=== PATIENT | female | born 1975 | race Caucasian/White ===

== ENCOUNTER 2020-05-17 01:04 | Outpatient (CLI) | payer BC, SELFPAY ==
[2020-05-17 18:38] LABS: SARS-CoV-2 RNA PCR Negative
== END 2020-05-17 01:05 | disposition home or self-care (01) ==
LOC: ANHCOVIDDT 01:06
PROVIDERS: PCP Physician Assistant; Visit Provider Internal Medicine Gastroenterology
DX: Z01.812 Encounter for preprocedural laboratory examination (principal); Z11.59 Encounter for screening for other viral diseases
CPT/HCPCS: 87635; C9803; U0003

== ENCOUNTER 2020-05-19 01:32 | Day surgery (SDC) | payer BC, SELFPAY ==
[2020-05-12 10:57] VITALS: BMI 27.5
--- NOTE | 2020-05-18 16:56 | WPDANESEPP ---
Anes - Eval Pre Procedure Procedure: Operation Date: 05/19/20 07:30 Proposed Procedures p Colonoscopy - Fly Aldridge MD Date/Time: 05/18/20 16:56 Pre Op Diagnosis: Change in Bowel Habits Patient Data Age: 45 Gender: F Height: 5 ft 4 in Weight: 72.7 kg Allergies Allergy/AdvReac Type Severity Reaction Status Date / Time No Known Allergies Allergy Verified 05/12/20 10:54 Home Medications Medication Instructions Recorded Confirmed Type alprazolam 0.5 mg PO TID PRN 05/12/20 05/12/20 History doxycycline hyclate 50 mg PO PRN PRN 05/12/20 05/12/20 History fluconazole 150 mg PO DAILY PRN 05/12/20 05/12/20 History hydrochlorothiazide 12.5 mg PO DAILY 05/12/20 05/12/20 History levothyroxine [Synthroid] 88 mcg PO DAILY 05/12/20 05/12/20 History milnacipran [Savella] 50 mg PO HS 05/12/20 05/12/20 History milnacipran [Savella] 100 mg PO DAILY 05/12/20 05/12/20 History tizanidine 8 mg PO HS 05/12/20 05/12/20 History Patient hx anesthesia problems: none Family hx anesthesia problems: none PMFSH Past Medical History Medical History Anxiety and depression Diarrhea Fibromyalgia Hypothyroidism Kidney stones Migraines Family History Family History Sibling Family history of elevated blood lipids Other Diabetes mellitus Social History Social History Smoking status: Never smoker Alcohol intake: current Exam Day of Procedure 05/18/20 16:56 Patient weight: overweight Neurological: alert and oriented
--- NOTE | 2020-05-18 17:37 | WPDANESEPP ---
Anes - Eval Pre Procedure Procedure: Operation Date: 05/19/20 07:30 Proposed Procedures p Colonoscopy - Fly Aldridge MD Date/Time: 05/18/20 17:37 Pre Op Diagnosis: Change in Bowel Habits Patient Data Age: 45 Gender: F Height: 5 ft 4 in Weight: 72.7 kg Allergies Allergy/AdvReac Type Severity Reaction Status Date / Time No Known Allergies Allergy Verified 05/12/20 10:54 Home Medications Medication Instructions Recorded Confirmed Type alprazolam 0.5 mg PO TID PRN 05/12/20 05/12/20 History doxycycline hyclate 50 mg PO PRN PRN 05/12/20 05/12/20 History fluconazole 150 mg PO DAILY PRN 05/12/20 05/12/20 History hydrochlorothiazide 12.5 mg PO DAILY 05/12/20 05/12/20 History levothyroxine [Synthroid] 88 mcg PO DAILY 05/12/20 05/12/20 History milnacipran [Savella] 50 mg PO HS 05/12/20 05/12/20 History milnacipran [Savella] 100 mg PO DAILY 05/12/20 05/12/20 History tizanidine 8 mg PO HS 05/12/20 05/12/20 History Patient hx anesthesia problems: none Family hx anesthesia problems: none PMFSH Past Medical History Medical History (Updated 05/18/20 @ 17:39 by Iker Mojica CRNA) Anxiety and depression Diarrhea Fibromyalgia Hypothyroidism Kidney stones Migraines Family History Family History Sibling Family history of elevated blood lipids Other Diabetes mellitus Social History Social History Smoking status: Never smoker Alcohol intake: current Exam Day of Procedure 05/18/20 17:37 Patient weight: normal Neurological: alert and oriented
[2020-05-19 06:27] VITALS: BP 123/90; PULSE 94; RESP 18; TEMP 36.4; O2SAT 99; BMI 27.6
[2020-05-19] MEDS: LACTATED RINGERS 1,000 ML 150 ML IV CONT (06:39)
--- NOTE | 2020-05-19 07:14 | WPDANESEFPP ---
Anes - Eval Final PreProcedure Day of Procedure 05/19/20 07:14 Informed Consent: The patient's anesthetic plan and its attendant risks and benefits were discussed with the patient/family/POA. Questions were solicited and answers provided to the satisfaction of the patient/family/POA.
--- NOTE | 2020-05-19 07:19 | P.PNAN_ITS ---
Anes - Initial Pre Proc Eval Procedure: Operation Date: 05/19/20 07:30 Proposed Procedures p Colonoscopy - Fly Aldridge MD Date/Time: 05/19/20 07:19 Surgeon: Fly Aldridge MD Pre Op Diagnosis: Change in Bowel Habits Patient Data Age: 45 Gender: F Height: 5 ft 4 in Weight: 73 kg Last Vital Signs Temp 97.5 F L 05/19/20 06:27 Pulse 94 05/19/20 06:27 Resp 18 05/19/20 06:27 BP 123/90 05/19/20 06:27 Pulse Ox 99 05/19/20 06:27 Allergies Allergy/AdvReac Type Severity Reaction Status Date / Time No Known Allergies Allergy Verified 05/19/20 06:25 Home Medications Medication Instructions Recorded Confirmed Type alprazolam 0.5 mg PO TID PRN 05/12/20 05/12/20 History doxycycline hyclate 50 mg PO PRN PRN 05/12/20 05/12/20 History fluconazole 150 mg PO DAILY PRN 05/12/20 05/12/20 History hydrochlorothiazide 12.5 mg PO DAILY 05/12/20 05/12/20 History levothyroxine [Synthroid] 88 mcg PO DAILY 05/12/20 05/12/20 History milnacipran [Savella] 50 mg PO HS 05/12/20 05/12/20 History milnacipran [Savella] 100 mg PO DAILY 05/12/20 05/12/20 History tizanidine 8 mg PO HS 05/12/20 05/12/20 History Patient hx anesthesia problems: none Family hx anesthesia problems: none [facility] Past Medical History Medical History Anxiety and depression Diarrhea Fibromyalgia Hypothyroidism Kidney stones Migraines Family History Family History Sibling Family history of elevated blood lipids Other Diabetes mellitus Social History Social History Smoking status: Never smoker Alcohol intake: current Anes - Eval Final PreProcedure Day of Procedure 05/19/20 07:19 Patient weight: normal Heart: regular rate and rhythm Lungs: clear to auscultation Airway: Mallampati scale class II Neurological: alert and oriented Last oral intake: >/= 8 hours ASA classification: II Emergent: no Anesthetic plan: proceed Anesthesia type and monitoring: general GIVS and standard monitoring Informed Consent: The patient's anesthetic plan and its attendant risks and benefits were discussed with the patient/family/POA. Questions were solicited and answers provided to the satisfaction of the patient/family/POA.
--- NOTE | 2020-05-19 07:24 | PM.HPGS ---
History of Present Illness History of Present Illness Consent: Risks, benefits, and alternatives have been discussed and questions answered. Patient agrees to proceed with procedure. Chief complaint: Change in Bowel Habits Narrative: Lazara Lindsay is a 45 year old female With chronic diarrhea. She had been on cholestyramine to treat that and it had been effective but did seem to lead to an increase in headaches. She was taking the morning along with some of her prescription medications. Now that she has been off of cholestyramine she has urgent diarrhea every time she eats PMFSH Past Medical History Medical History Anxiety and depression Diarrhea Fibromyalgia Hypothyroidism Kidney stones Migraines Family History Family History Sibling Family history of elevated blood lipids Other Diabetes mellitus Social History Social History Smoking status: Never smoker Alcohol intake: current Meds Home Medications and Allergies Home Medications Medication Instructions Recorded Confirmed Type alprazolam 0.5 mg PO TID PRN 05/12/20 05/12/20 History doxycycline hyclate 50 mg PO PRN PRN 05/12/20 05/12/20 History fluconazole 150 mg PO DAILY PRN 05/12/20 05/12/20 History hydrochlorothiazide 12.5 mg PO DAILY 05/12/20 05/12/20 History levothyroxine [Synthroid] 88 mcg PO DAILY 05/12/20 05/12/20 History milnacipran [Savella] 50 mg PO HS 05/12/20 05/12/20 History milnacipran [Savella] 100 mg PO DAILY 05/12/20 05/12/20 History tizanidine 8 mg PO HS 05/12/20 05/12/20 History Allergies Allergy/AdvReac Type Severity Reaction Status Date / Time No Known Allergies Allergy Verified 05/19/20 06:25 Vital Signs Vital Signs - 24 hr 05/19/20 06:27 Temperature 36.4 C L Pulse Rate 94 Respiratory Rate 18 Blood Pressure 123/90 Pulse Oximetry 99 Exam Resp: Auscultation: clear to auscultation bilaterally Cardio: Rate: regular rate Rhythm: regular rhythm GI: GI Palp: Yes Soft to palpation and No Tenderness to palpation present (GI) Assessment and Plan Assessment and plan (1) Chronic diarrhea: Code(s): K52.9 - Noninfective gastroenteritis and colitis, unspecified Status: Acute Assessment and Plan: Colonoscopy with possible biopsy or polypectomy or cautery or injection of substances.
[2020-05-19 07:52] VITALS: BP 108/69; PULSE 87; RESP 18; O2SAT 99
[2020-05-19 08:02] VITALS: BP 105/70; PULSE 79; RESP 18; O2SAT 100
[2020-05-19 08:12] VITALS: BP 116/75; PULSE 79; RESP 18; O2SAT 100
== END 2020-05-19 08:19 | disposition home or self-care (01) ==
PROVIDERS: PCP Physician Assistant; Visit Provider Internal Medicine Gastroenterology
PROC: 0DJD8ZZ Inspection of Lower Intestinal Tract, Via Natural or Artificial Opening Endoscopic (ICD-10-PCS; CPT 45378; principal; 2020-05-19 07:30)
DX: K52.9 Noninfective gastroenteritis and colitis, unspecified (principal); E03.9 Hypothyroidism, unspecified; F41.9 Anxiety disorder, unspecified; F32.9 Major depressive disorder, single episode, unspecified; M79.7 Fibromyalgia; G43.909 Migraine, unspecified, not intractable, without status migrainosus; Z79.899 Other long term (current) drug therapy
CPT/HCPCS: 45380; 88305; J2704; J7120

== ENCOUNTER → 2020-10-04 15:06 | Outpatient (CLI) | payer BC, SELFPAY ==
--- NOTE | ~2020-10-04 | MM_ITS ---
EXAMINATION: MM screening satya BI w tung HISTORY: Screening TECHNIQUE: Craniocaudal and mediolateral oblique 3-D tomosynthesis images were obtained and synthetic 2-D images were generated. CAD analysis was submitted and interpreted. COMPARISON: 09/21/2019 BREAST PARENCHYMAL COMPOSITION: The breasts are heterogeneously dense, which may obscure small masses . FINDINGS: There is no evidence of suspicious mass, calcification, or architectural distortion to sugg est malignancy in either breast. There has been no suspicious interval change. IMPRESSION: 1. No mammographic evidence of malignancy. 2. Recommend routine screening mammography in one year. BI-RADS Category 1: Negative Reviewed, dictated and finalized at location A. F ESTIMATOR
== END ==
PROVIDERS: PCP Physician Assistant; Visit Provider Physician Assistant
DX: Z12.31 Encounter for screening mammogram for malignant neoplasm of breast (principal)
CPT/HCPCS: 77063; 77067

== ENCOUNTER 2021-06-18 09:17 | Outpatient (CLI) | payer BC, SELFPAY ==
--- NOTE | ~2021-06-18 | XR_ITS ---
EXAMINATION: CT abdomen pelvis wo/w con, XR abdomen/kub 1V DATE: 06/18/2021 10:20 (accession [id number]), 06/18/2021 09:50 (accession [id number]) INDICATION: Microscopic hematuria TECHNIQUE: Computed tomography (CT) of the abdomen and pelvis was performed without intravenous contr ast. CT of the abdomen and pelvis was then performed with a total of 130 mL Omnipaque-350 intravenous contrast using a double-bolus technique for simultaneous opacification of the renal parenchyma and r enal collecting system. Automated exposure control and iterative reconstruction technique were employ ed. The dose-length product was 1827.74 mGy-cm. 2. A single view of the abdomen was obtained on 2 radiographs. COMPARISON: None FINDINGS: CT UROGRAM: Lung bases are clear. Heart size is normal. Atherosclerotic coronary artery calcification. No pericar dial or pleural effusion. Cholecystectomy clips at the gallbladder fossa. Liver, pancreas, spleen and bilateral adrenal glands are normal. Dimension 3 mm nonobstructing stone at the interpolar region of the left kidney. Kidneys and ureters are otherwise normal with no other urolithiasis, hydroureterone phrosis or perinephric/ureteral stranding. The distal half of the right ureter remains decompressed a nd unopacified with contrast. All but a small portion of the proximal left ureter is opacified with c ontrast. No urothelial irregularities along the contrast opacified portions of the bilateral renal co llecting systems and ureters. Bladder is normal. Bowels including the appendix are normal. Uterus and bilateral adnexa are unremarkable. No free intraperitoneal gas or fluid. No pathologically enlarged abdominal or pelvic lymphadenopathy. Mild to moderate disc height loss at L2-L3 with Modic type III s clerotic endplate changes. ABDOMEN RADIOGRAPH(S): The 3 mm left renal stone projects over the tip of the left 12th rib on the radiographs. There are se veral phleboliths in the pelvis. Normal bowel gas pattern. IMPRESSION: 1. 3 mm left renal stone. Reviewed, dictated and finalized at location B. IMPRESSION: 1. 3 mm left renal stone. IMPRESSION: 1. 3 mm left renal stone.
== END 2021-06-18 09:18 | disposition home or self-care (01) ==
LOC: ANHIMG 09:22
PROVIDERS: PCP Physician Assistant; Visit Provider Urology
DX: R31.29 Other microscopic hematuria (principal); N20.0 Calculus of kidney
CPT/HCPCS: 74018; 74178; Q9967

== ENCOUNTER 2021-06-18 10:38 | Outpatient (CLI) | payer BC, SELFPAY ==
[2021-06-18 11:40] LABS: Anion Gap 7 mmol/L (8-16); Blood Urea Nitrogen 15 mg/dL (7-17); Calcium 9.5 mg/dL (8.4-10.2); Carbon Dioxide 28 mmol/L (22-30); Chloride 100 mmol/L (98-107); Estimated Glomerular Filt Rate > 60; Glucose 85 mg/dL (65-110); Potassium 4.3 mmol/L (3.4-5.0); Sodium 135 mmol/L (137-145)
== END 2021-06-18 10:39 | disposition home or self-care (01) ==
PROVIDERS: PCP Physician Assistant; Visit Provider Anesthesiology
DX: Z01.818 Encounter for other preprocedural examination (principal); N39.3 Stress incontinence (female) (male); Z79.899 Other long term (current) drug therapy
CPT/HCPCS: 36415; 80048; 87086; 87088

== ENCOUNTER 2021-06-22 01:39 | Day surgery (SDC) | payer BC, SELFPAY ==
--- NOTE | 2021-06-17 16:27 | PM.IMHP ---
H&P: HPI History of Present Illness Date/Time: 06/17/21 16:27 46yo with recurrent MUSTAPHA Chief Complaint: MUSTAPHA Review of Systems Review of Systems: All systems reviewed & are unremarkable except as noted in HPI and below [facility] Past Medical History Medical History (Updated 06/17/21 @ 16:28 by Yordy Madrigal MD) Anxiety and depression Diarrhea Fibromyalgia Hypothyroidism Kidney stones Migraines Family History Family History Sibling Family history of elevated blood lipids Other Diabetes mellitus Social History Social History Smoking status: Never smoker Alcohol intake: current Meds Home Medications and Allergies Home Medications Medication Instructions Recorded Confirmed Type Savella 50 mg PO HS 05/12/20 05/12/20 History Savella 100 mg PO DAILY 05/12/20 05/12/20 History alprazolam 0.5 mg PO TID PRN 05/12/20 05/12/20 History doxycycline hyclate 50 mg PO PRN PRN 05/12/20 05/12/20 History fluconazole 150 mg PO DAILY PRN 05/12/20 05/12/20 History hydrochlorothiazide 12.5 mg PO DAILY 05/12/20 05/12/20 History levothyroxine [Synthroid] 88 mcg PO DAILY 05/12/20 05/12/20 History tizanidine 8 mg PO HS 05/12/20 05/12/20 History Allergies Allergy/AdvReac Type Severity Reaction Status Date / Time No Known Allergies Allergy Verified 05/19/20 06:25 Exam Const: General: cooperative and healthy appearing HENMT: Head: normal to inspection Ears: hearing grossly normal bilaterally Mouth: Yes Normal oral and palatal mucosa present Eyes: General: appearance normal, both eyes and all related structures Cardio: Jugular venous distension: no JVD GI: Inspection: normal to inspection Back/Spine/Pelvis: Back: no CVA tenderness Skin: General skin exam: normal color Assessment and Plan Assessment and plan (1) MUSTAPHA (stress urinary incontinence, female): Code(s): N39.3 - Stress incontinence (female) (male) Status: Acute Assessment and Plan: urethral sling
[2021-06-19 13:37] VITALS: BMI 27.6
--- NOTE | 2021-06-21 11:54 | WPDANESEPPF ---
Anes - Initial Pre Proc Eval Procedure: Operation Date: 06/22/21 07:30 Proposed Procedures p Urethral Sling - Yordy Madrigal MD Date/Time: 06/21/21 11:54 Surgeon: Yordy Madrigal MD Pre Op Diagnosis: stress incontinence Patient Data Age: 46 Gender: F Height: 1.63 m Weight: 73 kg Allergies Allergy/AdvReac Type Severity Reaction Status Date / Time adhesive tape AdvReac Intermediate REDNESS, Verified 06/22/21 06:29 RASH Home Medications Medication Instructions Recorded Confirmed Type Savella 50 mg PO BID 05/12/20 06/22/21 History doxycycline hyclate 50 mg PO PRN PRN 05/12/20 06/22/21 History fluconazole 150 mg PO DAILY PRN 05/12/20 06/22/21 History hydrochlorothiazide 12.5 mg PO QAM 05/12/20 06/22/21 History levothyroxine [Synthroid] 88 mcg PO QAM 05/12/20 06/22/21 History tizanidine 8 mg PO HS 05/12/20 06/19/21 History clonazepam 0.5 mg PO QAM 06/19/21 06/22/21 History escitalopram oxalate 20 mg PO DIRECTED 06/19/21 06/22/21 History escitalopram oxalate 20 mg PO QAM 06/19/21 06/22/21 History hydrocodone-acetaminophen 1 tablet PO Q6H PRN #20 tablet 06/22/21 Rx Patient hx anesthesia problems: none Family hx anesthesia problems: none PMFSH Past Medical History Medical History (Updated 06/17/21 @ 16:28 by Yordy Madrigal MD) Anxiety and depression Diarrhea Fibromyalgia Hypothyroidism Kidney stones Migraines Surgical History Surgical History (Updated 06/21/21 @ 11:55 by Joss Jansen DO) H/O tubal ligation Family History Family History Sibling Family history of elevated blood lipids Other Diabetes mellitus Social History Social History Smoking status: Never smoker Alcohol intake: former Alcohol use details: SOCIAL DRINKER IN PAST Substance use: never Living arrangements: with family Additional living arrangements comments: SPOUSE AND SON Spiritual care concerns: No Anes - Eval Final PreProcedure Day of Procedure 06/21/21 11:54 Patient weight: overweight Heart: regular rate and rhythm Lungs: clear to auscultation and normal air movement Airway: Mallampati scale class II Neurological: alert and oriented Last oral intake: >/= 8 hours ASA classification: III Emergent: no Anesthetic plan: proceed Anesthesia type and monitoring: general GIVS and standard monitoring Informed Consent: The patient's anesthetic plan and its attendant risks and benefits were discussed with the patient/family/POA. Questions were solicited and answers provided to the satisfaction of the patient/family/POA.
[2021-06-22 06:28] VITALS: BP 116/84; PULSE 85; RESP 16; TEMP 36.2; O2SAT 99
[2021-06-22] MEDS: LACTATED RINGERS 1,000 ML 30 ML IV CONT (06:40)
--- NOTE | 2021-06-22 07:21 | WPDHPUPDATE1 ---
History and Physical Update Update Date/Time: 06/22/21 07:21 History and Physical has been reviewed, including an updated exam of the patient. There are NO changes in the patient's condition. Risks, benefits, and alternatives have been discussed and questions answered. Patient agrees to proceed with procedure.
[2021-06-22] MEDS: ceFAZolin 2 GM/D5W 50 ML 2 GM/50 ML BAG IVPB (07:30)
[2021-06-22] MEDS: KETOROLAC 30 MG/ML VIAL (*BKC) IV PUSH (07:59)
--- NOTE | 2021-06-22 08:03 | W.PM.PROC2 ---
Procedure Note - Detailed Date of Procedure 06/22/21 Pre-op Diagnosis stress incontinence Post-op Diagnosis same Procedure Performed mid urethral sling cystoscopy Surgeon Yordy Madrigal MD Indications This is a female with confirm stress urinary incontinence. She desires surgical correction. She understands the risks of bleeding, infection, injury to the urinary tract, vaginal mesh extrusion, urinary tract mesh erosion, obstructive voiding requiring a secondary procedure, hip and leg pain, dyspareunia, inability to improve overactive bladder symptoms. She agrees to proceed. She had a mid urethral sling 10-11 years ago. She understands the slightly higher risk of failure or non efficacy. She agrees to proceed Description of Procedure She was correctly identified. Informed consent obtained. She was brought the operating room. She was given appropriate anesthesia. She was given appropriate perioperative antibiotics. A time-out performed. I marked out the site of the inner thigh incisions. I anesthetized the skin and made those incisions. I anesthetized the anterior vaginal wall over the mid urethra. I made a 1 cm incision. I dissected out laterally taking great care not to injure the refilled vaginal wall. I passed the helical trocars. First on the left. Then on the right. I did this from the thigh incision towards the vaginal incision. The sling was connected to the trocars and brought out through the thigh incision. I tensioned the sling appropriately. I cut and the plastic sheaths. I then closed the incision with 2 0 Vicryl. On cystoscopy there is no tumors or surgical artifact. There was no surgical artifact in the urethra. I cut the excess sling material. Close incisions with glue. She was awakened and transferred to the PACU in stable condition. Implants Urethral sling Drains No Packing No Pathology none sent Complications No immediate complications Condition stable Disposition PACU
[2021-06-22 08:06] VITALS: BP 126/69; PULSE 80; RESP 16; O2SAT 94
[2021-06-22 08:25] VITALS: BP 125/79; PULSE 77; RESP 16; O2SAT 97
[2021-06-22 08:55] VITALS: BP 138/92; PULSE 81; RESP 16
== END 2021-06-22 09:07 | disposition home or self-care (01) ==
PROVIDERS: PCP Physician Assistant; Visit Provider Urology
PROC: (CPT 57288; principal; 2021-06-22 07:30)
DX: N39.3 Stress incontinence (female) (male) (principal); F41.8 Other specified anxiety disorders; M79.7 Fibromyalgia; E03.9 Hypothyroidism, unspecified
CPT/HCPCS: 57288; A9270; C1771; J0690; J1885; J2250; J2405; J2704; J3010; J7030; J7120

== ENCOUNTER → 2021-10-08 10:23 | Outpatient (CLI) | payer BC, SELFPAY ==
--- NOTE | ~2021-10-08 | US_ITS ---
EXAMINATION: US thyroid EXAM DATE: 10/08/2021 10:35 INDICATION: Hypothyroidism. TECHNIQUE: Multiple grayscale and Doppler images of the thyroid were obtained (by a technologist who performed the scan) and subsequently reviewed. Individual nodules and recommendations may be reporte d in accordance with TI-RADS system as designated by the 2017 ACR White Paper TI-RADS committee. The re is no prior study for comparison. FINDINGS: The right there are lobe measures 3.8 x 1.3 x 1.1 cm, the right measuring 4.1 x 1.2 x 1.3 cm. There i s homogeneous thyroid echogenicity. No focal nodules are identified. IMPRESSION: 1. Unremarkable thyroid ultrasound exam. Reviewed, dictated and finalized at location B. K SEALER
== END ==
PROVIDERS: PCP Physician Assistant; Visit Provider Physician Assistant
DX: E03.9 Hypothyroidism, unspecified (principal)
CPT/HCPCS: 76536

== ENCOUNTER 2021-10-29 07:51 | Outpatient (CLI) | payer BC, SELFPAY ==
--- NOTE | 2021-10-30 15:30 | WPDHOMESLEEP ---
Sleep Study - Home Unattended Date of Study: 10/29/21 <Cecilia Naranjo DO - Last Filed: 10/30/21 16:00> Ordering Provider: KIEL Jacques <Cecilia Naranjo DO - Last Filed: 10/30/21 16:00> Interpreting Provider: Cecilia Naranjo DO <Cecilia Naranjo, DO - Last Filed: 10/30/21 16:00> Home Sleep Study Type: Apnea Link Air <Cecilia Naranjo DO - Last Filed: 10/30/21 16:00> Height: 1.63 m <Cecilia Naranjo DO - Last Filed: 10/30/21 16:00> Weight: 83.915 kg <Cecilia Naranjo DO - Last Filed: 10/30/21 16:00> Body Mass Index: 31.7 <Cecilia Naranjo DO - Last Filed: 10/30/21 16:00> Neck Circumference (inches): 15.25 <Cecilia Naranjo DO - Last Filed: 10/30/21 16:00> [place]: 5 <Cecilia Naranjo DO - Last Filed: 10/30/21 16:00> Reason for Sleep Study Witnessed apneas, daytime hypersomnia <Cecilia Naranjo DO - Last Filed: 10/30/21 16:00> Sleep History The patient is a 46-year-old female with hypothyroidism, hyperlipidemia, anxiety and fibromyalgia that had a home sleep test ordered by her primary care due to sleep disturbances. The patient states that she snores loudly, wakes up gasping for air and has headaches. The patient states she occasionally awakens from sleep short of breath. She rarely awakens at night with heartburn, belching or cough. She frequently snores loud enough that others complain. She occasionally has trouble sleeping when she has a cold. She frequently wakes up gasping for air throughout the night. She frequently has breathing problems at night observed by others. She occasionally sweats excessively at night. She rarely has heart palpitations or irregular heartbeats. She denies falling asleep during the day and while driving. He rarely has trouble at work due to sleepiness. She denies sleep paralysis, cataplexy and hypnagogic / hypnopompic hallucinations. She denies having nightmares. She constantly has thoughts racing through her mind. She denies feeling sad or depressed. She constantly has anxiety. She frequently notices parts of her body jerk. She frequently kicks during the night. She rarely has crawling and aching feelings in her legs. She occasionally has leg pain during the night. She frequently grinds her teeth during sleep and constantly awakens with a morning jaw pain. She is constantly bothered by pain during the day and constantly awakened by pain during the night. She constantly wakes up feeling stiff in the morning with sore and achy muscles. She constantly wakes up with pain in the neck, spine and other joints. She goes to bed at 10:30 p.m. on weekdays and midnight on the weekends. It takes her 20 minutes to fall asleep. She wakes up 2 times per night at most. She will reposition herself and fall back asleep within seconds. She wakes up at 6:30 a.m. on weekdays and between 830 and 9:00 a.m. on the weekends. She will typically get 7 hours of sleep per night. She will stay in bed for 30 minutes after awakening in the morning. She currently lives with her and child. She does not consume any caffeinated beverages within 2 hours of bedtime. She does not engage in physical exercise before bedtime. She will read before falling asleep. She does not take naps in the afternoon or the evening. She will drink 1 sugar free caffeinated beverage per day. She denies tobacco, alcohol and recreational drug use. <Cecilia Naranjo DO - Last Filed: 10/30/21 16:00> [facility] Past Medical History Medical History: Medical History Anxiety and depression Diarrhea Fibromyalgia Hypothyroidism Kidney stones Migraines <Cecilia Naranjo DO - Last Filed: 10/30/21 16:00> Surgical History Surgical History: Surgical History H/O tubal ligation <Cecilia Naranjo,
[2021-10-30 15:33] VITALS: BMI 31.7
== END 2021-10-30 11:31 | disposition home or self-care (01) ==
PROVIDERS: PCP Physician Assistant
DX: G47.30 Sleep apnea, unspecified (principal); G47.9 Sleep disorder, unspecified
CPT/HCPCS: 95806

== ENCOUNTER → 2021-10-29 09:46 | Outpatient (CLI) | payer BC, SELFPAY ==
--- NOTE | ~2021-10-29 | MR_ITS ---
EXAMINATION: MR brain/brain stem wo/w con DATE: 10/29/2021 10:34 INDICATION: New daily persistent headache. TECHNIQUE: Magnetic resonance imaging (MRI) of the brain and brainstem was performed without and with 15 mL MultiHance intravenous contrast. Sequences included sagittal and axial T1-weighted FSE, axial diffusion-weighted FS EPI, axial T2*-weighted GRE, axial T2-weighted FLAIR Propeller, and axial T2-we ighted Propeller. Postcontrast sequences included axial and coronal T1-weighted FSE. Apparent diffusi on coefficient (ADC) maps were created. COMPARISON: Brain MRI 09/04/2011 FINDINGS: There are scattered areas of nonspecific increased T2-weighted signal intensity in the cere bral white matter, which is within normal limits for the patient's age. 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 There is no intracranial hemorrhage, acute infarction, or abnormal intracranial mass lesion. The ventricles are normal in size. The mastoid air cells are normal. The pa ranasal sinuses are clear. The orbits are normal. IMPRESSION: 1. Normal aging brain. Reviewed, dictated and finalized at location A. RWATER HUNTER TRAPPER IMPRESSION: 1. Normal aging brain.
[2021-10-29 10:16] LABS: Estimated Glomerular Filt Rate > 60
== END ==
PROVIDERS: PCP Physician Assistant; Visit Provider Physician Assistant
DX: G44.52 New daily persistent headache (NDPH) (principal)
CPT/HCPCS: 70553; A9577

== ENCOUNTER 2021-12-28 08:03 | Outpatient (CLI) | payer BC, SELFPAY ==
--- NOTE | 2022-01-07 11:43 | WPDSLEEPSTUD ---
Sleep Study Date of Study: 12/28/21 Ordering Provider: Michelle Winter, DARRELL Interpreting Physician: Sujey Heller MD Sleep Study Type: Polysomnogram Height: 1.63 m Weight: 74.843 kg Body Mass Index: 28.3 Neck Circumference (inches): 15.5 [place]: 7 Reason for Sleep Study Witnessed apneas, daytime hypersomnolence, previous home sleep test 10/29/2021 with an apnea hypopnea index of 3.6 which is not consistent with sleep disordered breathing. She presents for an attended sleep study. Sleep History Lazara Lindsay us a 46-year-old female with hypothyroidism, hyperlipidemia, anxiety and fibromyalgia who had a home sleep test for loud snoring and daytime hypersomnolence. The patient states that she snores loudly, wakes up gasping for air and has headaches. The patient states she occasionally awakens from sleep short of breath. She rarely awakens at night with heartburn, belching or coughing. She frequently snores loudly enough that others complain. She occasionally has trouble sleeping when she has a cold. She frequently wakes up gasping for air throughout the night. She frequently has breathing problems at night observed by others. She occasionally sweats excessively at night. She rarely has heart palpitations or irregular heartbeats. She denies falling asleep during the day and while driving. He rarely has trouble at work due to sleepiness. She denies feeling paralyzed on waking or falling asleep, weakness with strong emotion, and denies having vivid dreams on sleep onset or waking. She denies having nightmares. She constantly has thoughts racing through her mind. She denies feeling sad or depressed. She constantly has anxiety. She frequently notices parts of her body jerk. She frequently kicks during the night. She rarely has crawling and aching feelings in her legs. She occasionally has leg pain during the night. She frequently grinds her teeth during sleep and constantly awakens with a morning jaw pain. She is constantly bothered by pain during the day and constantly awakened by pain during the night. She constantly wakes up feeling stiff in the morning with sore and achy muscles. She constantly wakes up with pain in the neck, spine and other joints. Normal bedtime is 10:30 p.m. on weekdays and midnight on the weekends. It takes her 20 minutes to fall asleep. She wakes up 2 times per night at most. She will reposition herself and fall back asleep within seconds. She wakes up at 6:30 a.m. on weekdays and between 8:30 a.m. and 9:00 a.m. on the weekends. She will typically get 7 hours of sleep per night. She will stay in bed for 30 minutes after awakening in the morning. She currently lives with her and child. She does not take naps in the afternoon or the evening. Habits: No tobacco. Caffeine: 1 sugar free caffeinated beverage per day. No alcohol or recreational drug use. [facility] Past Medical History Medical History Anxiety and depression Diarrhea Fibromyalgia Hypothyroidism Kidney stones Migraines Surgical History Surgical History H/O tubal ligation Family History Family History Sibling Family history of elevated blood lipids Other Diabetes mellitus Social History Social History Smoking status: Never smoker Alcohol intake: former Alcohol use details: SOCIAL DRINKER IN PAST Substance use: never Additional living arrangements comments: SPOUSE AND SON Spiritual care concerns: No Medications Home Medications Medication Instructions Recorded Confirmed Type Savella 50 mg PO BID 05/12/20 06/22/21 History doxycycline hyclate 50 mg PO PRN PRN 05/12/20 06/22/21 History fluconazole 150 mg PO DAILY PRN 05/12/20 06/22/21 History hydrochlorothiazide 12.5 mg PO QAM
[2022-01-07 12:10] VITALS: BMI 28.3
== END 2021-12-29 07:30 | disposition home or self-care (01) ==
LOC: ANHCSM 12-31 08:03
PROVIDERS: PCP Physician Assistant; Visit Provider Physician Assistant
DX: G47.9 Sleep disorder, unspecified (principal); R06.83 Snoring
CPT/HCPCS: 95810

== ENCOUNTER → 2022-01-14 16:17 | Outpatient (CLI) | payer BC, SELFPAY ==
--- NOTE | ~2022-01-14 | MM_ITS ---
EXAMINATION: MM screening satya BI w tung HISTORY: Screening mammogram TECHNIQUE: Craniocaudal and mediolateral oblique 3-D tomosynthesis images were obtained and synthetic 2-D images were generated. CAD analysis was submitted and interpreted. COMPARISON: 10/04/2020, 09/21/2019 bilateral screening mammogram examinations BREAST PARENCHYMAL COMPOSITION: The breasts are heterogeneously dense, which may obscure small masses . FINDINGS: There is no evidence of suspicious mass, calcification, or architectural distortion to sugg est malignancy in either breast. There has been no suspicious interval change. IMPRESSION: 1. No mammographic evidence of malignancy. 2. Recommend routine screening mammography in one year. BI-RADS Category 1: Negative Reviewed, dictated and finalized at location A.
== END ==
PROVIDERS: Visit Provider Physician Assistant
DX: Z12.31 Encounter for screening mammogram for malignant neoplasm of breast (principal)
CPT/HCPCS: 77063; 77067

== ENCOUNTER → 2022-02-11 09:07 | Outpatient (CLI) | payer BC, SELFPAY ==
--- NOTE | ~2022-02-11 | MR_ITS ---
EXAMINATION: MR cervical spine wo con DATE: 02/11/2022 09:42 INDICATION: Degeneration of cervical intervertebral disc. Neck pain. TECHNIQUE: Magnetic resonance imaging (MRI) of the cervical spine was performed without intravenous c ontrast. Sequences included sagittal T2-weighted FSE, sagittal T2-weighted FS FSE, sagittal T1-weight ed FSE, axial MERGE, and axial T2-weighted FSE. COMPARISON: Cervical spine MRI 11/01/2011 FINDINGS: There is hypolordosis of cervical spine. Vertebral body heights and intervertebral disc hei ghts are normal. The spinal cord signal intensity is normal. The following disc levels are specifical ly discussed: C2-C3: The disc does not extend beyond the endplate margin. There is mild right uncovertebral joint o steoarthritis. There is severe right and mild left facet joint osteoarthritis. There is mild right ne ural foraminal stenosis. There is no central canal stenosis. C3-C4: The disc does not extend beyond the endplate margin. There is mild right uncovertebral joint o steoarthritis. There is mild right and moderate left facet joint osteoarthritis. There is mild right neural foraminal stenosis. There is no central canal stenosis. C4-C5: There is a right central protrusion. There is no uncovertebral joint osteoarthritis. There is no facet joint osteoarthritis. There is no neural foraminal stenosis. There is mild central canal oralia nosis. C5-C6: There is a right central protrusion. There is no uncovertebral joint osteoarthritis. There is no facet joint osteoarthritis. There is no neural foraminal stenosis. There is mild central canal oralia nosis. C6-C7: The disc is bulging. There is no uncovertebral joint osteoarthritis. There is no facet joint o steoarthritis. There is no neural foraminal stenosis. There is mild central canal stenosis. C7-T1: The disc does not extend beyond the endplate margin. There is no uncovertebral joint osteoarth ritis. There is mild right and moderate left facet joint osteoarthritis. There is mild bilateral neur al foraminal stenosis. There is no central canal stenosis. IMPRESSION: 1. Mild cervical spondylosis, slightly worsened from 11/01/2011. Reviewed, dictated and finalized at location B.
== END ==
PROVIDERS: PCP Physician Assistant; Visit Provider Physician Assistant
DX: M50.30 Other cervical disc degeneration, unspecified cervical region (principal); M47.812 Spondylosis without myelopathy or radiculopathy, cervical region
CPT/HCPCS: 72141

== ENCOUNTER → 2022-06-25 08:46 | Outpatient (CLI) | payer BC, SELFPAY ==
--- NOTE | ~2022-06-25 | XR_ITS ---
EXAMINATION: XR ankle RT min 3V, XR foot RT min 3V DATE: 06/25/2022 09:11 INDICATION: Right foot and ankle joint pain TECHNIQUE: 1. Anteroposterior, mortise, additional oblique and lateral view of the right ankle were obtained. 2. Dorsoplantar, two oblique and lateral views of the right foot were obtained. COMPARISON: None. FINDINGS: Alignment of the right foot and ankle is normal. No fracture or osteochondral lesion. Mild polyarticu lar osteoarthritis at the first metatarsophalangeal joint, the calcaneocuboid and multiple tarsometat arsal and interphalangeal joints. No erosions to suggest an inflammatory arthritis. Small heterotopic ossicle near the tip the medial malleolus likely sequela chronic deltoid ligament sprain. No ankle j oint effusion. The soft tissues are unremarkable. IMPRESSION: 1. 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 Reviewed, dictated and finalized at location A. IMPRESSION: 1. 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
== END ==
PROVIDERS: PCP Physician Assistant; Visit Provider Physician Assistant
DX: M25.571 Pain in right ankle and joints of right foot (principal); M19.071 Primary osteoarthritis, right ankle and foot
CPT/HCPCS: 73610; 73630

== ENCOUNTER → 2023-03-27 14:02 | Outpatient (CLI) | payer BC, SELFPAY ==
--- NOTE | ~2023-03-27 | MM_ITS ---
EXAMINATION: MM screening satya BI w tung HISTORY: Screening mammogram TECHNIQUE: Craniocaudal and mediolateral oblique 3-D tomosynthesis images were obtained and synthetic 2-D images were generated. CAD analysis was submitted and interpreted. COMPARISON: 01/14/2022, 10/14/2020, 09/21/2019 bilateral screening mammogram examinations BREAST PARENCHYMAL COMPOSITION: The breasts are heterogeneously dense, which may obscure small masses . FINDINGS: There is no evidence of suspicious mass, calcification, or architectural distortion to sugg est malignancy in either breast. There has been no suspicious interval change. IMPRESSION: 1. No mammographic evidence of malignancy. 2. Recommend routine screening mammography in one year. BI-RADS Category 1: Negative Reviewed, dictated and finalized at location A.
== END ==
PROVIDERS: PCP Physician Assistant; Visit Provider Physician Assistant
DX: Z12.31 Encounter for screening mammogram for malignant neoplasm of breast (principal)
CPT/HCPCS: 77063; 77067

== ENCOUNTER 2024-03-31 16:18 | Outpatient (CLI) | payer BC, SELFPAY ==
--- NOTE | ~2024-03-31 | MM_ITS ---
EXAMINATION: MM screening satya BI w tung HISTORY: Screening TECHNIQUE: Craniocaudal and mediolateral oblique 3-D tomosynthesis images were obtained and synthetic 2-D images were generated. CAD analysis was submitted and interpreted. COMPARISON: Comparison to multiple prior studies sequentially, with oldest reviewed study dated 08/28. BREAST PARENCHYMAL COMPOSITION: Not dense: There are scattered areas of fibroglandular density. FINDINGS: There are developing asymmetries posteriorly in the left breast. The right breast is stable without evidence for malignancy. IMPRESSION: 1. Developing left breast asymmetries. 2. Additional mammographic views and possible breast ultrasound are recommended. BI-RADS Category 0: Incomplete: Needs additional imaging evaluation. Reviewed, dictated and finalized at location B. IMPRESSION: 1. Developing left breast asymmetries. 2. Additional mammographic views and possible breast ultrasound are recommended . BI-RADS Category 0: Incomplete: Needs additional imaging evaluation.
== END 2024-03-31 16:19 | disposition home or self-care (01) ==
LOC: ANHIMG 16:19
PROVIDERS: PCP Physician Assistant; Visit Provider Physician Assistant
DX: Z12.31 Encounter for screening mammogram for malignant neoplasm of breast (principal); R92.8 Other abnormal and inconclusive findings on diagnostic imaging of breast
CPT/HCPCS: 77063; 77067

== ENCOUNTER 2024-05-03 08:46 | Outpatient (CLI) | payer BC, SELFPAY ==
--- NOTE | ~2024-05-03 | MMUS_ITS ---
EXAMINATION: MM diagnostic satya LT w tung, US breast LT complete HISTORY: Follow-up left breast asymmetry TECHNIQUE: Additional 3-D tomosynthesis images of left were performed and synthetic 2-D images were g enerated. CAD analysis was submitted and interpreted. High resolution complete left breast ultrasound was performed. COMPARISON: Comparison to multiple prior studies sequentially, with oldest reviewed study dated 08/28. BREAST PARENCHYMAL COMPOSITION: Dense: The breasts are heterogeneously dense, which may obscure small masses FINDINGS: MAMMOGRAPHIC FINDINGS: Focal areas of asymmetry medially in the left breast are less apparent with spot compression and medi olateral views. ULTRASOUND: Complete US of all 4 quadrants of the left breast and retroareolar region was reviewed. At 11:00, 7 c m from the nipple there is an oval slightly lobulated hypoechoic 9 mm mass with parallel orientation, no posterior features and no internal vascularity. IMPRESSION: 1. Left breast mass at 11:00, 7 cm from the nipple measuring 9 mm. 2. Ultrasound-guided left breast biopsy recommended. BI-RADS category 4, suspicious findings. Reviewed, dictated and finalized at location B. IMPRESSION: 1. Left breast mass at 11:00, 7 cm from the nipple measuring 9 mm. 2. Ultrasound-guided left breast biopsy recommended. BI-RADS category 4, suspicious findings.
== END 2024-05-03 08:47 | disposition home or self-care (01) ==
LOC: CHSIMG 08:50
PROVIDERS: PCP Physician Assistant; Visit Provider Physician Assistant
DX: R92.8 Other abnormal and inconclusive findings on diagnostic imaging of breast (principal)
CPT/HCPCS: 76641; 77061; 77065; G0279

== ENCOUNTER 2025-04-06 08:22 | Outpatient (CLI) | payer BC, SELFPAY ==
--- NOTE | ~2025-04-06 | MM_ITS ---
EXAMINATION: MM screening satya BI w tung HISTORY: Screening TECHNIQUE: Craniocaudal and mediolateral oblique 3-D tomosynthesis images were obtained and synthetic 2-D images were generated. CAD analysis was submitted and interpreted. COMPARISON: Comparison to multiple prior studies sequentially, with oldest reviewed study dated 08/28. BREAST PARENCHYMAL COMPOSITION: Dense: The breasts are heterogeneously dense, which may obscure small masses FINDINGS: There is no evidence of suspicious mass, calcification, or architectural distortion to sugg est malignancy in either breast. There has been no suspicious interval change. IMPRESSION: 1. No mammographic evidence of malignancy. 2. Recommend routine screening mammography in one year. BI-RADS Category 1: Negative Reviewed, dictated and finalized at location []
--- OUTSIDE RECORDS SUMMARY | 2025-04-06 08:40 | XMS_ITS | Data Portability ---
Author Organization [facility], Main Office Address [address] [place] [address] Care Team Providers Care Health Economist Name Role Phone YAMIL HAYDEN Primary Care Provider YAMIL HAYDEN Referring Provider Assessment No assessment recorded. Plan of Treatment Reminders Order Date Submit Date Provider Last Modified By Organization Details Last Modified Time Details Appointments None recorded. Lab vitamin D, 25-hydrox y, total, serum 023 023 [employer] [facility], [address], [place], [address], 3 22:19:33 CMP, serum or plasma 023 023 [employer] [facility], [address], [place], [address], 3 22:19:31 CBC w/ auto diff 023 023 [employer] [facility], [address], [place], [address], 3 22:19:35 HbA1c (hemoglob in A1c), blood 023 023 [employer] [facility], [address], [place], [address], 3 22:19:32 lipid panel, serum 023 023 [employer] [facility], [address], [place], [address], 3 22:19:30 TSH + free T4, serum [address] [facility], [address], [place], [address], 3 22:19:29 T3, free, serum or plasma 023 023 [facility], [address], [place], [address], 3 22:19:34 vitamin B12 + folate, serum or blood 023 023 [facility], [address], [place], [address], 3 22:19:36 vitamin B2 (riboflav in), serum or plasma [address] [facility], [address], [place], [address], 3 22:19:37 vitamin B6 (pyridoxi ne), plasma 023 023 [facility], [address], [place], [address], 3 22:19:38 Referral None recorded. Procedures None recorded. Surgeries None recorded. Imaging None recorded. Medication Orders None recorded. Patient TargetsNo targets recorded. Patient InstructionsNo instructions recorded. Reason for Referral None Reported. Results Created Date Observation Date Name Description Value Unit Range Abnormal Flag Note LastModifiedBy Organization Detail LastModifiedTime 07/18/20 22 07/24/2022 VITAM IN B6, PLASM A vitamin B6, plasma 44.7 NG/mL 2.1-21 .7 high (Note ) VITAM IN SUPPL EMENT ATION WITHI N 24 HOURS PRIOR TO BLOOD DRAW MAY AFFEC T THE ACCUR ACY OF RESUL TS. THIS TEST WAS DEVEL OPED AND ITS LAZ TICAL PERFO RMANC E DANIEL CTERI STICS HAVE BEEN DETER MINED BY [facility]. IT HAS NOT BEEN CLEAR ED OR APPRO DARRICK BY THE FDA. THIS ASSAY HAS BEEN VALID ATED PURSU ANT TO THE CLIA REGUL ATION S AND IS USED FOR CLINI DEEPA PURPO SES. SANDEE med fusio n [address] [facility] [address] [place] [address] [phone] Edilberto olivares MD Not Available [employer] [address] [address] [place], [address], 07/24/2022 23:19:18 07/18/2007/24/2022 VITAM IN B2 (RIBO FLAVI N) vitamin B2 (riboflavin) 139.1 nmol/ L 6.2-39 .0 high Vitam in suppl ement ation withi n 24 hours prior to blood draw may affec t the accur acy of resul ts. This test was devel oped and its laz tical perfo rmanc e daniel cteri stics have been deter mined by [facility]. It has not been clear ed or appro darrick by the FDA. This assay has been valid ated pursu ant to the CLIA regul ation s and is used for clini deepa purpo ses. Not Available [employer] [address] [address] [place], [address], 07/24/2022 23:19:18 07/18/2007/24/2022 VITAM IN B12/F OLATE , SERUM PANEL vitamin B12 403 pg/mL 200-11 00 normal Not Available [facility] [address] [address] [place], [address], 07/24/2022 23:19:17 07/18/2007/24/2022 VITAM IN B12/F OLATE , SERUM PANEL folate, serum 9.6 NG/mL normal Refer ence Range Low: <3.4 Borde rline : 3.4-5 .4 Luly l: >5.4 Not Available [facility] [address] [place] [address], [address], 07/24/2022 23:19:17 07/18/2007/24/2022 CBC (INCL UDES DIFF/ PLT) white blood cell count 4.7 thous and/u L 3.8-10 .8 normal Not Available [address], [address], 07/24/2022 23:19:17 07/18/2007/24/2022 CBC (INCL UDES DIFF/ PLT) red blood cell count 4.74 sola on/uL 3.80-5 .10 normal Not Available [address], [address], 07/24/2022 23:19:17 07/18/2007/24/2022 CBC (INCL UDES DIFF/ PLT) hemoglobin 13.8 g/dL 11.7-1 5.5 normal Not Available [address], [address], 07/24/2022 23:19:17 07/18/2007/24/2022 CBC (INCL UDES DIFF/ PLT) hematocrit 44.1 % 35.0-4 5.0 normal Not Available [address], [address], 07/24/2022 23:19:17 07/18/2007/24/2022 CBC (INCL UDES DIFF/ PLT) MCV 93.0 fL 80.0-1 00.0 normal Not Available [address], [address], 07/24/2022 23:19:17 07/18/2007/24/2022 CBC (INCL UDES DIFF/ PLT) MCH 29.1 pg 27.0-3 3.0 normal Not Available [address], [address], 07/24/2022 23:19:17 07/18/2007/24/2022 CBC (INCL UDES DIFF/ PLT) MCHC 31.3 g/dL 32.0-3 6.0 low Not Available [address], [address], 07/24/2022 23:19:17 07/18/2007/24/2022 CBC (INCL UDES DIFF/ PLT) RDW 13.0 % 11.0-1 5.0 normal Not Available [address], [address], 07/24/2022 23:19:17 07/18/2007/24/2022 CBC (INCL UDES DIFF/ PLT) platelet count 341 thous and/u L 140-40 0 normal Not Available [address], [address], 07/24/2022 23:19:17 07/18/2007/24/2022 CBC (INCL UDES DIFF/ PLT) MPV 10.5 fL 7.5-12 .5 normal Not Available [address], [address], 07/24/2022 23:19:17 07/18/2007/24/2022 CBC (INCL UDES DIFF/ PLT) absolute neutrophils 2402 cells /uL 1500-7 800 normal Not Available [address], [address], 07/24/2022 23:19:17 07/18/2007/24/2022 CBC (INCL UDES DIFF/ PLT) absolute lymphocytes 1716 cells /uL 850-39 00 normal Not Available [address], [address], 07/24/2022 23:19:17 07/18/2007/24/2022 CBC (INCL UDES DIFF/ PLT) absolute monocytes 400 cells /uL 200-95 0 normal Not Available [address], [address], 07/24/2022 23:19:17 07/18/20 22 07/24/2022 CBC (INCL UDES DIFF/ PLT) absolute eosinophils 132 cells /uL 15-500 normal Not Available [facility] [address], [address], 07/24/2022 23:19:17 07/18/20 22 07/24/2022 CBC (INCL UDES DIFF/ PLT) absolute basophils 52 cells /uL 0-200 normal Not Available [facility] [address], [address], 07/24/2022 23:19:17 07/18/20 22 07/24/2022 CBC (INCL UDES DIFF/ PLT) neutrophils 51.1 % normal Not Available [facility] [address], [address], 07/24/2022 23:19:17 07/18/2007/24/2022 CBC (INCL UDES DIFF/ PLT) lymphocytes 36.5 % normal Not Available [address], [address], 07/24/2022 23:19:17 07/18/2007/24/2022 CBC (INCL UDES DIFF/ PLT) monocytes 8.5 % normal Not Available [facility] [address], [address], 07/24/2022 23:19:17 07/18/20 22 07/24/2022 CBC (INCL UDES DIFF/ PLT) eosinophils 2.8 % normal Not Available [facility] [address], [address], 07/24/2022 23:19:17 07/18/20 22 07/24/2022 CBC (INCL UDES DIFF/ PLT) basophils 1.1 % normal Not Available [facility] [address] [place], [address], 07/24/2022 23:19:17 07/18/2007/24/2022 URIC ACID uric acid 5.1 mg/dL 2.5-7. 0 normal Thera peronen barajas targe t for gout patie nts: <6.0 mg/dL Not Available [address] [address] [place], [address], 07/24/2022 23:19:16 07/18/2007/24/2022 MAGNE SIUM magnesium 2.0 mg/dL 1.5-2. 5 normal Not Available [facility] [address] [address] [place], [address], 07/24/2022 23:19:15 07/18/2007/24/2022 VITAM IN D,25- OH,TO APRIL,I A vitamin D,25-oh,tota l,ia 81 NG/mL 30-100 normal Vitam in D Statu s 25-OH Vitam in D: Defic iency : <20 ng/mL Insuf ficie ncy: 20 - 29 ng/mL Optim al: > or = 30 ng/mL For 25-OH Vitam in D testi ng on patie nts on D2-ricketts pplem entat ion and patie nts for whom quant itati on of D2 and D3 fract ions is requi red, the [facility](TM ) 25-OH VIT D, (D2,D 3), LC/MS /MS is recom sanju d: order code 18665 (yeni ents >2yrs ). See Note 1 Note 1 For addit ional infor bora del cid e refer to http: //solange Rico gnost ics.c om/fa q/FAQ 199 (This link is being provi ded for infor maycol barbosa/ domi ludwig purpo ses only. ) Not Available [facility] [address] [address] [place], [address], 07/24/2022 23:19:15 07/18/20 07/24/2022 HEMOG LOBIN A1C hemoglobin A1C 5.2 %_of_ total _HGB <5.7 normal For the purpo se of ashley fall for the prese nce of diabe samantha: <5.7% Consi stent with the absen ce of diabe samantha 5.7-6 .4% Consi stent with incre ased risk for diabe samantha (pred iabet es) > or =6.5% Consi stent with diabe samantha This assay resul t is consi stent with a decre ased risk of diabe samantha. Curre ntly, no conse nsus exist s taylor jones use of hemog lobin A1c for diagn osis of diabe samantha in child davey. Accor ding to Ameri can Diabe samantha Assoc iatio n (ADA) guide lines , hemog lobin A1c <7.0% repre sents optim al contr ol in non-p regna nt diabe tic patie nts. Diffe rent metri cs may apply to speci fic patie nt popul ation s. Stand ards of Medic al Care in Diabe samantha(A DA). Not Available [address] [address] [place], [address], 07/24/2022 23:19:14 07/18/20 22 07/24/2022 COMPR EHENS ROSARIO METAB OLIC PANEL eGFR 93 mL/mi n/1.7 3m2 > or = 60 normal The eGFR is based on the CKD-E PI 2020 equat ion. To calcu late the new eGFR from a previ ous Creat inine or Cysta tin C resul t, go to https ://ww w.kid fred.o jennifer/pr deirdre rubi s/ kdoqi /gfr% 5Fcal culat or Not Available [employer] [address] [address] [place], [address], 07/24/2022 23:19:14 07/18/20 22 07/24/2022 COMPR EHENS ROSARIO METAB OLIC PANEL BUN/creatini ne ratio not applic able (calc ) 6-22 Not Available [facility], [address], 07/24/2022 23:19:14 07/18/20 22 07/24/2022 COMPR EHENS ROSARIO METAB OLIC PANEL sodium 139 mmol/ L 135-14 6 normal Not Available [address], [address], 07/24/2022 23:19:14 07/18/20 22 07/24/2022 COMPR EHENS ROSARIO METAB OLIC PANEL potassium 4.3 mmol/ L 3.5-5. 3 normal Not Available [address], [address], 07/24/2022 23:19:14 07/18/20 22 07/24/2022 COMPR EHENS ROSARIO METAB OLIC PANEL chloride 103 mmol/ L 98-110 normal Not Available [address], [address], 07/24/2022 23:19:14 07/18/20 22 07/24/2022 COMPR EHENS ROSARIO METAB OLIC PANEL carbon dioxide 31 mmol/ L 20-32 normal Not Available [address], [address], 07/24/2022 23:19:14 07/18/20 22 07/24/2022 COMPR EHENS ROSARIO METAB OLIC PANEL calcium 9.6 mg/dL 8.6-10 .2 normal Not Available [address], [address], 07/24/2022 23:19:14 07/18/20 22 07/24/2022 COMPR EHENS ROSARIO METAB OLIC PANEL protein, total 6.3 g/dL 6.1-8. 1 normal Not Available [address], [address], 07/24/2022 23:19:14 07/18/20 22 07/24/2022 COMPR EHENS ROSARIO METAB OLIC PANEL albumin 4.2 g/dL 3.6-5. 1 normal Not Available [address], [address], 07/24/2022 23:19:14 07/18/20 22 07/24/2022 COMPR EHENS ROSARIO METAB OLIC PANEL globulin 2.1 g/dL_ (calc ) 1.9-3. 7 normal Not Available [address], [address], 07/24/2022 23:19:14 07/18/20 22 07/24/2022 COMPR EHENS ROSARIO METAB OLIC PANEL albumin/glob ulin ratio 2.0 (calc ) 1.0-2. 5 normal Not Available [address], [address], 07/24/2022 23:19:14 07/18/20 22 07/24/2022 COMPR EHENS ROSARIO METAB OLIC PANEL bilirubin, total 0.6 mg/dL 0.2-1. 2 normal Not Available [address], [address], 07/24/2022 23:19:14 07/18/20 22 07/24/2022 COMPR EHENS ROSARIO METAB OLIC PANEL alkaline phosphatase 52 U/L 31-125 normal Not Available [address], [address], 07/24/2022 23:19:14 07/18/20 22 07/24/2022 COMPR EHENS ROSARIO METAB OLIC PANEL AST 17 U/L 10-35 normal Not Available [address], [address], 07/24/2022 23:19:14 07/18/20 22 07/24/2022 COMPR EHENS ROSARIO METAB OLIC PANEL ALT 12 U/L 6-29 normal Not Available [address], [address], 07/24/2022 23:19:14 07/18/20 22 07/24/2022 COMPR EHENS ROSARIO METAB OLIC PANEL glucose 84 mg/dL 65-99 normal Fasti ng refer ence inter ann marie Not Available [address], [address], 07/24/2022 23:19:14 07/18/20 22 07/24/2022 COMPR EHENS ROSARIO METAB OLIC PANEL urea nitrogen (BUN) 14 mg/dL 7-25 normal Not Available [address], [address], 07/24/2022 23:19:14 07/18/20 22 07/24/2022 COMPR EHENS ROSARIO METAB OLIC PANEL creatinine 0.80 mg/dL 0.50-0 .99 normal Not Available [address], [address], 07/24/2022 23:19:14 07/18/20 22 07/24/2022 LIPID PANEL WITH RATIO S cholesterol, total 230 mg/dL <200 high Not Available [address], [address], 07/24/2022 23:19:13 07/18/20 22 07/24/2022 LIPID PANEL WITH RATIO S HDL cholesterol 48 mg/dL > or = 50 low Not Available [address], [address], 07/24/2022 23:19:13 07/18/20 22 07/24/2022 LIPID PANEL WITH RATIO S triglyceride s 137 mg/dL <150 normal Not Available [address], [address], 07/24/2022 23:19:13 07/18/20 22 07/24/2022 LIPID PANEL WITH RATIO S LDL-choleste rol 156 mg/dL _(deepa c) high Refer ence range : <100 Silvia able range <100 mg/dL for prima ry preve ntion ; <70 mg/dL for patie nts with CHD or diabe tic patie nts with > or = 2 CHD risk facto rs. LDL-C is now calcu lated using the Natividad n-Hop kins alejandrau tanner dunn, which is a valid ated novel metho d provi ding jacquie r accur acy than the Fried [place] equat ion in the estim ation of LDL-C . Natividad dunn SS et al. COURT. 2013; 310(1 9): 2061- 2068 (http ://ed ucati on.Qu Soundl.ly. com/f aq/FA Q164) Not Available [employer] [address], [address], 07/24/2022 23:19:13 07/18/2007/24/2022 LIPID PANEL WITH RATIO S chol/HDLC ratio 4.8 (calc ) <5.0 normal Not Available [employer] [facility] [address] [place] [address], [address], 07/24/2022 23:19:13 07/18/2007/24/2022 LIPID PANEL WITH RATIO S LDL/HDL ratio 3.3 (calc ) Below avera ge Risk: <2.34 Lonedell ge Risk: 2.35- 4.12 Moder ate Risk: 4.13- 5.56 High Risk: >5.57 Not Available [employer] [facility] [address] [place] [address], [address], 07/24/2022 23:19:13 07/18/2007/24/2022 LIPID PANEL WITH RATIO S non HDL cholesterol 182 mg/dL _(deepa c) <130 high For patie nts with diabe samantha plus 1 major ASCVD risk facto r, treat ing to a non-H DL-C goal of <100 mg/dL (LDL- C of <70 mg/dL ) is haylee sorensono n. Not Available [employer] [facility] [address] [place] [address], [address], 07/24/2022 23:19:13 07/18/20 22 07/24/2022 TSH+F REE T4 TSH 1.16 mIU/L normal Refer ence Range > or = 20 Years 0.40- 4.50 Pregn robert Range s First trime ster 0.26- 2.66 Secon d trime ster 0.55- 2.73 Third trime ster 0.43- 2.91 Not Available [address], [address], 07/24/2022 23:19:12 07/18/20 22 07/24/2022 TSH+F REE T4 T4, free 1.2 NG/dL 0.8-1. 8 normal Not Available [address], [address], 07/24/2022 23:19:12 07/10/20 23 07/17/2023 TSH+F REE T4 TSH 1.81 mIU/L normal Refer ence Range > or = 20 Years 0.40- 4.50 Pregn robert Range s First trime ster 0.26- 2.66 Secon d trime ster 0.55- 2.73 Third trime ster 0.43- 2.91 Not Available [address], [address], 07/17/2023 22:19:29 07/10/20 23 07/17/2023 TSH+F REE T4 T4, free 1.5 NG/dL 0.8-1. 8 normal Not Available [address], [address], 07/17/2023 22:19:29 07/10/20 23 07/17/2023 LIPID PANEL WITH RATIO S cholesterol, total 219 mg/dL <200 high Not Available [address], [address], 07/17/2023 22:19:30 07/10/20 23 07/17/2023 LIPID PANEL WITH RATIO S HDL cholesterol 53 mg/dL > or = 50 normal Not Available [employer] [facility] [address] [place], [address], 07/17/2023 22:19:30 07/10/20 23 07/17/2023 LIPID PANEL WITH RATIO S triglyceride s 158 mg/dL <150 high Not Available [employer] [facility] [address] [place], [address], 07/17/2023 22:19:30 07/10/20 23 07/17/2023 LIPID PANEL WITH RATIO S LDL-choleste rol 137 mg/dL _(deepa c) high Refer ence range : <100 Silvia able range <100 mg/dL for prima ry preve ntion ; <70 mg/dL for patie nts with CHD or diabe tic patie nts with > or = 2 CHD risk facto rs. LDL-C is now calcu lated using the Natividad dunn-Hop kins calcu tanner n, which is a valid ated novel tayo d fanny jones jacquie r accur acy than the Fried [place] equat ion in the estim ation of LDL-C . Natividad dunn SS et al. COURT. 2013; 310(1 9): 2061- 2068 (http ://ed ucati on.Qu Herminio Mingleplay. UeeeU.com/f aq/FA Q164) Not Available [employer] [facility] [address] [place], [address], 07/17/2023 22:19:30 07/10/2007/17/2023 LIPID PANEL WITH RATIO S chol/HDLC ratio 4.1 (calc ) <5.0 normal Not Available [employer] [facility] [address] [place], [address], 07/17/2023 22:19:30 07/10/20 23 07/17/2023 LIPID PANEL WITH RATIO S LDL/HDL ratio 2.6 (calc ) Below avera ge Risk: <2.34 Lonedell ge Risk: 2.35- 4.12 Moder ate Risk: 4.13- 5.56 High Risk: >5.57 Not Available [address] [address] [place], [address], 07/17/2023 22:19:30 07/10/20 23 07/17/2023 LIPID PANEL WITH RATIO S non HDL cholesterol 166 mg/dL _(deepa c) <130 high For patie nts with diabe samantha plus 1 major ASCVD risk facto r, treat ing to a non-H DL-C goal of <100 mg/dL (LDL- C of <70 mg/dL ) is consi dered a thera peuti c optio n. Not Available [address] [place], [address], 07/17/2023 22:19:30 07/10/20 23 07/17/2023 COMPR EHENS ROSARIO METAB OLIC PANEL glucose 75 mg/dL 65-99 normal Fasti ng refer ence inter ann marie Not Available [address] [address] [place], [address], 07/17/2023 22:19:31 07/10/20 23 07/17/2023 COMPR EHENS ROSARIO METAB OLIC PANEL urea nitrogen (BUN) 14 mg/dL 7-25 normal Not Available [address] [address] [place], [address], 07/17/2023 22:19:31 07/10/20 23 07/17/2023 COMPR EHENS ROSARIO METAB OLIC PANEL creatinine 0.96 mg/dL 0.50-0 .99 normal Not Available [address] [address] [place], [address], 07/17/2023 22:19:31 07/10/20 23 07/17/2023 COMPR EHENS ROSARIO METAB OLIC PANEL eGFR 74 mL/mi n/1.7 3m2 > or = 60 normal Not Available [address] [address] [place], [address], 07/17/2023 22:19:31 07/10/20 23 07/17/2023 COMPR EHENS ROSARIO METAB OLIC PANEL BUN/creatini ne ratio SEE NOTE: (calc ) 6-22 Not Repor efraín: BUN and Creat inine are withi n refer ence range . Not Available [address], [address], 07/17/2023 22:19:31 07/10/20 23 07/17/2023 COMPR EHENS ROSARIO METAB OLIC PANEL sodium 136 mmol/ L 135-14 6 normal Not Available [address], [address], 07/17/2023 22:19:31 07/10/20 23 07/17/2023 COMPR EHENS ROSARIO METAB OLIC PANEL potassium 3.5 mmol/ L 3.5-5. 3 normal Not Available [address], [address], 07/17/2023 22:19:31 07/10/20 23 07/17/2023 COMPR EHENS ROSARIO METAB OLIC PANEL chloride 99 mmol/ L 98-110 normal Not Available [address], [address], 07/17/2023 22:19:31 07/10/20 23 07/17/2023 COMPR EHENS ROSARIO METAB OLIC PANEL carbon dioxide 26 mmol/ L 20-32 normal Not Available [address], [address], 07/17/2023 22:19:31 07/10/20 23 07/17/2023 COMPR EHENS ROSARIO METAB OLIC PANEL calcium 9.5 mg/dL 8.6-10 .2 normal Not Available [address], [address], 07/17/2023 22:19:31 07/10/20 23 07/17/2023 COMPR EHENS ROSARIO METAB OLIC PANEL protein, total 6.5 g/dL 6.1-8. 1 normal Not Available [address], [address], 07/17/2023 22:19:31 07/10/20 23 07/17/2023 COMPR EHENS ROSARIO METAB OLIC PANEL albumin 4.2 g/dL 3.6-5. 1 normal Not Available [address], [address], 07/17/2023 22:19:31 07/10/20 23 07/17/2023 COMPR EHENS ROSARIO METAB OLIC PANEL globulin 2.3 g/dL_ (calc ) 1.9-3. 7 normal Not Available [address], [address], 07/17/2023 22:19:31 07/10/20 23 07/17/2023 COMPR EHENS ROSARIO METAB OLIC PANEL albumin/glob ulin ratio 1.8 (calc ) 1.0-2. 5 normal Not Available [address], [address], 07/17/2023 22:19:31 07/10/20 23 07/17/2023 COMPR EHENS ROSARIO METAB OLIC PANEL bilirubin, total 0.5 mg/dL 0.2-1. 2 normal Not Available [address], [address], 07/17/2023 22:19:31 07/10/20 23 07/17/2023 COMPR EHENS ROSARIO METAB OLIC PANEL alkaline phosphatase 57 U/L 31-125 normal Not Available [address], [address], 07/17/2023 22:19:31 07/10/20 23 07/17/2023 COMPR EHENS ROSARIO METAB OLIC PANEL AST 17 U/L 10-35 normal Not Available [address], [address], 07/17/2023 22:19:31 07/10/20 23 07/17/2023 COMPR EHENS ROSARIO METAB OLIC PANEL ALT 13 U/L 6-29 normal Not Available [facility] [address] [place], [address], 07/17/2023 22:19:31 07/10/20 23 07/17/2023 HEMOG LOBIN A1C hemoglobin A1C 5.0 %_of_ total _HGB <5.7 normal For the purpo se of scree eufemia for the prese nce of diabe samantha: <5.7% Consi stent with the absen ce of diabe samantha 5.7-6 .4% Consi stent with incre ased risk for diabe samantha (pred iabet es) > or =6.5% Consi stent with diabe samantha This assay resul t is consi stent with a decre ased risk of diabe samantha. Curre ntly, no conse nsus exist s taylor jones use of hemog lobin A1c for diagn osis of diabe samantha in child davey. Accor ding to Ameri can Diabe samantha Assoc iatio n (ADA) guide lines , hemog lobin A1c <7.0% repre sents optim al contr ol in non-p regna nt diabe tic patie nts. Diffe rent metri cs may apply to speci fic patie nt popul ation s. Stand ards of Medic al Care in Diabe samantha(A DA). Not Available [employer] [facility] [address] [address], [place], [address], 07/17/2023 22:19:32 07/10/20 23 07/17/2023 VITAM IN D,25- OH,TO APRIL,I A vitamin D,25-oh,tota l,ia 33 NG/mL 30-100 normal Vitam in D Statu s 25-OH Vitam in D: Defic iency : <20 ng/mL Insuf ficie ncy: 20 - 29 ng/mL Optim al: > or = 30 ng/mL For 25-OH Vitam in D testi ng on patie nts on D2-ricketts pplem entat ion and patie nts for whom quant itati on of D2 and D3 fract ions is requi red, the [facility] e[facility](TM ) 25-OH VIT D, (D2,D 3), LC/MS /MS is recom sanju d: order code [id number] (yeni ents >2yrs ). See Note 1 Note 1 For addit ional infor bora del cid e refer to http: //[facility] cara Zacariasia gnost ics.c om/fa q/FAQ 199 (This link is being provi ded for infor maycol barbosa/ educa benton ludwig purpo ses only. ) Not Available [employer] [address], [address], 07/17/2023 22:19:33 07/10/20 23 07/17/2023 T3, FREE T3, free 3.4 pg/mL 2.3-4. 2 normal Not Available [address], [address], 07/17/2023 22:19:34 07/10/20 23 07/17/2023 CBC (INCL UDES DIFF/ PLT) white blood cell count 6.0 thous and/u L 3.8-10 .8 normal Not Available [address], [address], 07/17/2023 22:19:35 07/10/20 23 07/17/2023 CBC (INCL UDES DIFF/ PLT) red blood cell count 5.02 sola on/uL 3.80-5 .10 normal Not Available [address], [address], 07/17/2023 22:19:35 07/10/20 23 07/17/2023 CBC (INCL UDES DIFF/ PLT) hemoglobin 15.4 g/dL 11.7-1 5.5 normal Not Available [employer] [address], [address], 07/17/2023 22:19:35 07/10/20 23 07/17/2023 CBC (INCL UDES DIFF/ PLT) hematocrit 44.8 % 35.0-4 5.0 normal Not Available [address], [address], 07/17/2023 22:19:35 07/10/20 23 07/17/2023 CBC (INCL UDES DIFF/ PLT) MCV 89.2 fL 80.0-1 00.0 normal Not Available [address], [address], 07/17/2023 22:19:35 07/10/20 23 07/17/2023 CBC (INCL UDES DIFF/ PLT) MCH 30.7 pg 27.0-3 3.0 normal Not Available [address], [address], 07/17/2023 22:19:35 07/10/20 23 07/17/2023 CBC (INCL UDES DIFF/ PLT) MCHC 34.4 g/dL 32.0-3 6.0 normal Not Available [address], [address], 07/17/2023 22:19:35 07/10/20 23 07/17/2023 CBC (INCL UDES DIFF/ PLT) RDW 12.4 % 11.0-1 5.0 normal Not Available [address], [address], 07/17/2023 22:19:35 07/10/20 23 07/17/2023 CBC (INCL UDES DIFF/ PLT) platelet count 325 thous and/u L 140-40 0 normal Not Available [address], [address], 07/17/2023 22:19:35 07/10/20 23 07/17/2023 CBC (INCL UDES DIFF/ PLT) MPV 9.9 fL 7.5-12 .5 normal Not Available [address], [address], 07/17/2023 22:19:35 07/10/20 23 07/17/2023 CBC (INCL UDES DIFF/ PLT) absolute neutrophils 3360 cells /uL 1500-7 800 normal Not Available [address], [address], 07/17/2023 22:19:35 07/10/20 23 07/17/2023 CBC (INCL UDES DIFF/ PLT) absolute lymphocytes 1992 cells /uL 850-39 00 normal Not Available [address], [address], 07/17/2023 22:19:35 07/10/20 23 07/17/2023 CBC (INCL UDES DIFF/ PLT) absolute monocytes 546 cells /uL 200-95 0 normal Not Available [address], [address], 07/17/2023 22:19:35 07/10/20 23 07/17/2023 CBC (INCL UDES DIFF/ PLT) absolute eosinophils 42 cells /uL 15-500 normal Not Available [address], [address], 07/17/2023 22:19:35 07/10/20 23 07/17/2023 CBC (INCL UDES DIFF/ PLT) absolute basophils 60 cells /uL 0-200 normal Not Available [address], [address], 07/17/2023 22:19:35 07/10/20 23 07/17/2023 CBC (INCL UDES DIFF/ PLT) neutrophils 56 % normal Not Available [address], [address], 07/17/2023 22:19:35 07/10/20 23 07/17/2023 CBC (INCL UDES DIFF/ PLT) lymphocytes 33.2 % normal Not Available [address], [address], 07/17/2023 22:19:35 07/10/20 23 07/17/2023 CBC (INCL UDES DIFF/ PLT) monocytes 9.1 % normal Not Available [address], [address], 07/17/2023 22:19:35 07/10/20 23 07/17/2023 CBC (INCL UDES DIFF/ PLT) eosinophils 0.7 % normal Not Available [address], [address], 07/17/2023 22:19:35 07/10/20 23 07/17/2023 CBC (INCL UDES DIFF/ PLT) basophils 1.0 % normal Not Available [address], [address], 07/17/2023 22:19:35 07/10/20 23 07/17/2023 VITAM IN B12/F OLATE , SERUM PANEL vitamin B12 282 pg/mL 200-11 00 normal Pleas e Note: Altho ugh the refer ence range for vitam in B12 is 200-1 100 pg/mL , it has been repor efraín that betwe en 5 and 10% of patie nts with value s betwe en 200 and 400 pg/mL may exper ience neuro psych iatri c and hemat ologi c abnor malit ies due to occul t B12 defic iency ; less than 1% of patie nts with value s above 400 pg/mL will have sympt oms. Not Available [address], [address], 07/17/2023 22:19:36 07/10/20 23 07/17/2023 VITAM IN B12/F OLATE , SERUM PANEL folate, serum 6.2 NG/mL normal Refer ence Range Low: <3.4 Borde rline : 3.4-5 .4 Luly l: >5.4 Not Available [facility] [address] [place], [address], 07/17/2023 22:19:36 07/10/20 23 07/17/2023 VITAM IN B2 (RIBO FLAVI N) vitamin B2 (riboflavin) 10.8 nmol/ L 6.2-39 .0 Vitam in suppl ement ation withi n 24 hours prior to blood draw may affec t the accur acy of [facility] ts. This test was devel oped and its laz tical perfo rmanc e daniel cteri stics have been deter mined by [facility]. It has not been clear ed or appro darrick by the FDA. This assay has been valid ated pursu ant to the CLIA regul ation s and is used for clini deepa purpo ses. Not Available [facility] [address] [place], [address], 07/17/2023 22:19:37 07/10/2007/17/2023 VITAM IN B6, PLASM A vitamin B6, plasma 68.1 NG/mL 2.1-21 .7 high (Note ) VITAM IN SUPPL EMENT ATION WITHI N 24 HOURS PRIOR TO BLOOD DRAW MAY AFFEC T THE ACCUR ACY OF [facility] TS. THIS TEST WAS DEVEL OPED AND ITS LAZ TICAL PERFO RMANC E DANIEL CTERI STICS HAVE BEEN DETER MINED BY [facility]. IT HAS NOT BEEN CLEAR ED OR APPRO DARRICK BY THE FDA. THIS ASSAY HAS BEEN VALID ATED PURSU ANT TO THE CLIA REGUL ATION S AND IS USED FOR CLINI DEEPA PURPO SES. [facility] n [address] [facility] [address] [place] [address] [phone] Leroy tavares MD Not Available [facility] [address], [place], [address], 07/17/2023 22:19:38 06/18/20 22 02/11/2022 MRI, cervi deepa spine , w/o contr ast No observ ation record ed. MIGRATION. [facility] [address], [place], [address], 12/25/2022 15:43:21 06/25/20 22 06/25/2022 XR, ankle + foot No observ ation record ed. MIGRATION. [facility] [address], [place], [address], 12/25/2022 15:43:21 07/31/20 22 08/01/2022 XR, elbow , 3 or more view No observ ation record ed. MIGRATION. [id number] [place] [address], [place], [address], 12/25/2022 15:43:21 03/28/20 23 03/27/2023 MAMMO , scree eufemia, digit al, bilat eral No observ ation record ed. [email or web address] [facility] [address], [place], [address], 04/02/2023 12:03:01 06/27/20 23 01/30/2023 cardi ac stres s test No observ ation record ed. [email or web address] [place] [address], [place], [address], 07/01/2023 17:06:51 07/02/20 23 01/30/2023 imagi ng/di agnos tic resul t No observ ation record ed. [email or web address] Not Available 07/03 16:06:48 Result Notes None recorded. Problems Name Problem SNOMED Code Status Onset Date Resolution Date Notes Provider Name and Address Organization Details Recorded Time Benign essential hypertensi on 2689869 Active 2021 Not Available [facility] 3 15:41:49 Disorder of thyroid gland 12823403 Active Not Available [facility] 3 15:41:49 Acute sinusitis 88787133 Active Not Available [facility] 3 15:41:49 Pain of right ankle joint 0095627277611 9106 Active 2021 Not Available [facility] 3 15:41:49 Pain of left elbow joint 0534328611831 9104 Active 2021 Not Available [facility] 3 15:41:49 Nausea and vomiting 55774893 Active 2021 Not Available [facility] 3 15:41:49 Diabetes mellitus screening Active 2021 Not Available [facility] 3 15:41:49 Cobalamin deficiency 268868806 Active 2021 Not Available [facility] 3 15:41:49 Fibromyalg ia 862899123 Active 2017 Not Available [facility] 3 15:41:50 Screening mammograph y Active 2021 Not Available [facility] 3 15:41:50 Fibromyosi tis 64358112 Active Not Available [facility] 3 15:41:50 Headache 99752320 Active 2021 Not Available [facility] 3 15:41:50 Long-term drug therapy Active 2021 Not Available [facility] 3 15:41:50 Mixed hyperlipid emia 155679602 Active 2021 Not Available [facility] 3 15:41:50 Anemia 916289144 Active Not Available [facility] 3 15:41:50 Eruption 231541721 Active 2021 Not Available [facility] 3 15:41:50 Cholestero l screening Active 2021 Not Available [facility] 3 15:41:50 Rib pain 522388853 Active 2021 Not Available [facility] 3 15:41:50 Vitamin D deficiency 57564656 Active 2021 Not Available [facility] 3 15:41:51 Sinusitis 02606121 Active Not Available [facility] 3 15:41:51 Migraine 50150226 Active 2021 Not Available [facility] 3 15:41:51 Hypothyroi dism 34269826 Active Not Available [facility] 3 15:41:51 Irritable bowel syndrome characteri zed by constipati on 048558410 Active 2021 Not Available [facility] 3 15:41:51 Viral syndrome 508110601 Active Not Available [facility] 3 15:41:51 Anxiety 67806654 Active 2017 Not Available [facility] 3 15:41:51 Cough 51589312 Active 2021 Not Available [facility] 3 15:41:51 Hernia of abdominal cavity 43956601 Active Not Available [facility] 3 15:41:51 Upper respirator y infection 24707937 Active Not Available [facility] 3 15:41:51 Hyperlipid emia 29934721 Active 2017 Not Available [facility] 3 15:41:52 Urinary tract infectious disease 79230865 Active Not Available [facility] 3 15:41:52 Degenerati on of cervical interverte bral disc 45646824 Active 2021 Not Available [facility] 3 15:41:52 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 505168313 Active 2021 Not Available [facility] 3 15:41:52 Thyroiditi s 14426204 Active Not Available [facility] 3 15:41:52 Fatigue 08172272 Active Not Available [facility] 3 15:41:52 Weight gain 4743068 Active 2022 Not Available [facility] 3 15:41:52 Primary fibromyalg ia syndrome 56003284 Active Not Available [facility] 3 15:41:52 Obesity 015112539 Active 2022 KIEL Jacques [address] [facility], [facility] [address], [place], [address] , [facility] [employer] [facility] 3 17:45:02 Problem Notes None recorded. Procedures Surgical History Date Name Laterality Status Provider Name and Address Organization Details Recorded Time 06/22/20 21 cystoscopy completed Not Available [facility] 12/25/2022 15:40:40 05/19/20 20 Date of Last Colonoscopy completed Not Available [facility] 12/25/2022 15:40:39 05/19/20 20 Colonoscopy completed Not Available [facility] 12/25/2022 15:40:40 Cholecystectomy completed Not Available [facility] 12/25/2022 15:40:40 Kidney Stones completed Not Available [facility] 12/25/2022 15:40:40 [employer] Surgery completed Not Available [facility] 12/25/2022 15:40:40 Hernia Repair completed Not Available [facility] 12/25/2022 15:40:40 Unlisted px urinary system completed Not Available [facility] 12/25/2022 15:40:40 Imaging Results None recorded. Procedure Notes None recorded. Medical Equipment None Reported. Allergies No known drug allergies Medications Name Sig Start Date Stop Date Status Note LastModified by Organization Details LastModified Time amoxicill in 500 mg capsule active Not Available Not Available Not Available medroxypr ogesteron e 10 mg tablet active Not Available Not Available Not Available buspirone 5 mg tablet take half tablet po twice daily x 1 week, then may increase to one tab po bid if needed active Not Available Not Available No t Available prednison e 10 mg tablet active Not Available Not Available Not Available doxycycli ne hyclate 100 mg capsule 06/04 completed Not Available Not Available Not Available nabumeton e 750 mg tablet TK 1 T PO BID WF PRN 04/12 completed Not Available Not Available Not Available azithromy estela 250 mg tablet TAKE 2 TABLETS BY MOUTH FOR 1 DAY THEN TAKE 1 TABLET BY MOUTH DAILY FOR 4 DAYS 06/14 completed Not Available Not Available Not Available Retin-A 0.025 % topical cream APPLY TO THE AFFECTED AREA(S) of face BY TOPICAL ROUTE ONCE DAILY AT BEDTIME PRN 03/30 completed Not Available Not Available Not Available ofloxacin 0.3 % eye drops active Not Available Not Available Not Available tizanidin e 4 mg tablet TAKE 1 TABLET BY MOUTH EVERY 12 HOURS NEEDED 2022 active Not Available Not Available Not Avai lable fluconazo le 150 mg tablet Take 1 tablet by mouth daily for 1 day as directed . May repeat later date as needed. active Not Available Not Available No t Available benzonata te 200 mg capsule Take 1 capsule 3 times a day by oral route as needed. active Not Available Not Available No t Available valacyclo vir 1 gram tablet active Not Available Not Available Not Available hydrocodo ne 5 mg-acetam inophen 325 mg tablet TAKE 1 TABLET BY MOUTH EVERY 6 HOURS NEEDED 06/13 completed Not Available Not Available Not Available Avelox 400 mg tablet active Not Available Not Available Not Available minocycli ne 100 mg capsule TAKE 1 CAPSULE BY MOUTH EVERY DAY 06/17 completed Not Available Not Available Not Available meloxicam 15 mg tablet TK 1 T PO QD PRN 04/12 completed Not Available Not Available Not Available ondansetr on HCl 4 mg tablet active Not Available Not Available No t Available prednison e 20 mg tablet TAKE 1 TABLET BY MOUTH EVERY 12 HOURS NEEDED. DO NOT EXCEED 4 DAYS OF TREATMEN T EVERY 10 DAYS DIRECTED 06/04 completed Not Available Not Available Not Available Synthroid 100 mcg tablet Take 1 tablet by mouth daily. active Not Available Not Available No t Available clonazepa m 0.5 mg tablet TAKE 1 TABLET BY MOUTH THREE TIMES DAILY NEEDED active Not Available Not Available No t Available spironola ctone 100 mg tablet Take 1 tablet every day by oral route. active Not Available Not Available No t Available doxycycli ne hyclate 50 mg capsule TK ONE C PO D WITH EVENING MEAL. DO NOT TAKE AT BEDTIME active Not Available Not Available No t Available terconazo le 0.8 % vaginal cream Insert 1 applicat orful every day by vaginal route as directed for 5 days. 06/04 completed Not Available Not Available Not Available Cleocin 100 mg vaginal supposito ry Insert 1 supposit ory every day by vaginal route for 3 days. active Not Available Not Available No t Available clobetaso l 0.05 % topical cream 06/04 completed Not Available Not Available Not Available acetamino phen 300 mg-codein e 30 mg tablet TAKE 1 TABLET BY MOUTH EVERY 6 HOURS NEEDED 02/02 completed Not Available Not Available Not Available valacyclo vir 500 mg tablet TK 1 T PO D active Not Available Not Available No t Available estradiol -norethin drone acet 1 mg-0.5 mg tablet TAKE 1 TABLET BY MOUTH EVERY DAY 10/01 completed Not Available Not Available Not Available ciproflox acin 500 mg tablet 06/04 completed Not Available Not Available Not Available sulfameth oxazole 800 mg-trimet hoprim 160 mg tablet active Not Available Not Available Not Available triamcino lone acetonide 0.1 % topical cream JOSHUA BID PRF IRRITATI ON 06/04 completed Not Available Not Available Not Available ketorolac 30 mg/mL (1 mL) injection solution Inject 2 mL by intramus cular route. 06/14 completed [facility]# [id number] Not Available Not Available Not Available ketorolac 10 mg tablet Take 1 tablet by mouth every 6 hours as needed for up to 5 days. 06/13 completed Not Available Not Available Not Available meloxicam 7.5 mg tablet Take 2 tablets every day by oral route with meals. 09/23 completed Not Available Not Available Not Available alprazola m 0.5 mg tablet TK 1 T PO TID PRN active Not Available Not Available No t Available amoxicill in 875 mg tablet Take 1 tablet every 12 hours by oral route. active Not Available Not Available No t Available alprazola m 0.25 mg tablet TK 1 T PO BID PRN 06/04 completed Not Available Not Available Not Available methocarb kim 750 mg tablet TK 1 T PO Q 4 TO 6 H 06/04 completed Not Available Not Available Not Available tamsulosi n 0.4 mg capsule 06/04 completed Not Available Not Available Not Available Kenalog 10 mg/mL suspensio n for injection In office injectio n administ ered by the provider 12/13 completed ND: [id number] 4-20 Not Available Not Available Not Available benzonata te 100 mg capsule TK 1 C PO TID active Not Available Not Available No t Available levothyro xine 50 mcg tablet TK 1 T PO QD 06/04 completed Not Available Not Available Not Available buspirone 10 mg tablet TK 1 T PO BID 06/04 completed Not Available Not Available Not Available promethaz ine 25 mg/mL injection solution Take 1 mL by injectio n route. 06/17 completed [facility]#[id number] Not Available Not Available Not Available lidocaine 5 % topical patch APPLY 1 PATCH BY TRANSDER MAL ROUTE ONCE DAILY (MAY WEAR UP TO 12HOURS. ) 10/21 completed Not Available Not Available Not Available Synthroid 88 mcg tablet TAKE 1 TABLET BY MOUTH EVERY DAY. STOP 75 MCG DOSE 09/29 completed Not Available Not Available Not Available Synthroid 75 mcg tablet TK 1 T PO QAM 06/04 completed Not Available Not Available Not Available hydrocodo ne 5 mg-acetam inophen 500 mg tablet active Not Available Not Available Not Available codeine 10 mg-guaife nesin 100 mg/5 mL oral liquid TAKE 10 ML BY MOUTH EVERY 6 HOURS NEEDED active Not Available Not Available No t Available hydrochlo rothiazid e 25 mg tablet TAKE 1 TABLET BY MOUTH EVERY DAY active Not Available Not Available No t Available zolpidem 5 mg tablet take one tab po 30 min. before sleep study. active Not Available Not Available No t Available alprazola m 2 mg tablet active Not Available Not Available Not Available ergocalci ferol (vitamin D2) 1,250 mcg (50,000 unit) capsule TAKE 1 CAPSULE BY MOUTH EVERY WEEK active Not Available Not Available No t Available lotepredn ol etabonate 0.5 % eye drops,rambo pension active Not Available Not Available Not Available Transderm -Scop 1 mg over 3 days transderm al patch Apply 1 patch every 72 hours by transder mal route as directed . active Not Available Not Available No t Available ibuprofen 600 mg tablet 06/04 completed Not Available Not Available Not Available levofloxa estela 500 mg tablet TK 1 T PO Q 24 H FOR 10 DAYS active Not Available Not Available No t Available oxycodone -acetamin ophen 7.5 mg-325 mg tablet active Not Available Not Available Not Available methylpre dnisolone 4 mg tablets in a dose pack active Not Available Not Available Not Available hydrocodo ne 10 mg-chlorp heniramin e 8 mg/5 mL oral susp extend.re l 12hr Take 5 mL every 12 hours by oral route as needed. 06/04 completed Not Available Not Available Not Available doxycycli ne hyclate 20 mg tablet TK 1 T PO BID WITH FOOD AND NOT AT BEDTIME active Not Available Not Available No t Available hydrocodo ne 7.5 mg-acetam inophen 500 mg tablet active Not Available Not Available Not Available ondansetr on 4 mg disintegr ating tablet Take 1 tablet every 6-8 hours by oral route as needed. 06/04 completed Not Available Not Available Not Available fluticaso ne propionat e 50 mcg/actua tion nasal spray,rambo pension active Not Available Not Available Not Available betametha sone dipropion ate 0.05 % lotion APPLY EXTERNAL LY TO THE SCALP TWICE DAILY DIRECTED FOR RASH. DO NOT APPLY TO FACE OR GENITALS active Not Available Not Available No t Available metronida zole 0.75 % topical gel 06/04 completed Not Available Not Available Not Available naproxen 500 mg tablet TK 1 T PO BID PRN P 06/04 completed Not Available Not Available Not Available diazepam 5 mg tablet TAKE 1 TO 2 TABLETS BY MOUTH BEFORE MRI TESTING 11/27 completed Not Available Not Available Not Available amoxicill in 875 mg-potass ium clavulana te 125 mg tablet TAKE 1 TABLET BY MOUTH EVERY 12 HOURS 04/02 completed Not Available Not Available Not Available hydroxyzi ne pamoate 25 mg capsule active Not Available Not Available Not Available escitalop piotr 10 mg tablet TAKE 1 TABLET BY MOUTH DAILY active Not Available Not Available No t Available escitalop piotr 20 mg tablet TAKE 1 TABLET BY MOUTH EVERY DAY active Not Available Not Available No t Available cholestyr amine (with sugar) 4 gram powder for susp in a packet MIX AND DRINK 1 PACKET(S ) BY MOUTH EVERY DAY DIRECTED active Not Available Not Available No t Available rosuvasta tin 5 mg tablet Take 1 tablet every day by oral route. 2022 active Not Available Not Available Not Avai lable nitrofura ntoin monohydra te/macroc rystals 100 mg capsule 06/04 completed Not Available Not Available Not Available duloxetin e 30 mg capsule,d elayed release Take 1 capsule every day by oral route. active Not Available Not Available No t Available duloxetin e 60 mg capsule,d elayed release TAKE ONE CAPSULE BY MOUTH EVERY DAY 06/04 completed Not Available Not Available Not Available Cymbalta 20 mg capsule,d elayed release active Not Available Not Available Not Available [facility] Cosmetic HRT Base cream active Not Available Not Available Not Available Amitiza 24 mcg capsule Take 1 capsule twice a day by oral route. 06/17 completed Not Available Not Available Not Available hydrochlo rothiazid e 12.5 mg tablet TAKE 1 TABLET BY MOUTH EVERY DAY 09/03 completed Not Available Not Available Not Available estradiol -norethin drone acet 0.5 mg-0.1 mg tablet TAKE 1 TABLET BY MOUTH EVERY DAY 10/01 completed Not Available Not Available Not Available clindamyc in 1.2 % (1 % base)-mary anne zoyl peroxide 5 % topical gel 06/04 completed Not Available Not Available Not Available Flector 1.3 % transderm al 12 hour patch one patch on each deltoid region q12 hours 10/21 completed Not Available Not Available Not Available Patanase 0.6 % nasal spray USE 2 SPRAYS IN EACH NOSTRIL TWICE DAILY active Not Available Not Available No t Available Savella 50 mg tablet TAKE 2 TABLET BY MOUTH EVERY MORNING AND THEN 1 TABLET EVERY EVENING active Not Available Not Available No t Available Savella 12.5 mg (5)-25 mg(8)-50m g(42) tablets in a dose pack take pack as directed 06/04 completed Not Available Not Available Not Available sodium hyalurona te (bulk) 94 % powder active Not Available Not Available Not Available Suprep Bowel Prep Kit 17.5 gram-3.13 gram-1.6 gram oral solution MIX AND DRINK UTD active Not Available Not Available No t Available turmeric root extract 500 mg capsule Take by oral route. 06/04 completed Not Available Not Available Not Available ropivacai ne (PF) 5 mg/mL (0.5 %) injection solution Take 2 mg by injectio n route. 12/13 completed Not Available Not Available Not Available lidocaine 5 % topical ointment APPLY TO AFFECTED AREA(S) BY TOPICAL ROUTE 1-4 TIMES DAILY NEEDED 05/23 completed Not Available Not Available Not Available Trulance 3 mg tablet TAKE 1 TABLET BY MOUTH EVERY DAY DIRECTED 06/17 completed Not Available Not Available Not Available Flucelvax Quad (PF) 60 mcg (15 mcg x 4)/0.5 mL IM syringe ADM 0.5ML IM UTD active Not Available Not Available No t Available BinaxNOW COVID-19 Ag Self Test kit TEST DIRECTED TODAY 12/13 completed Not Available Not Available Not Available Wegovy 1.7 mg/0.75 mL subcutane ous pen injector Inject 1.7 mg every week by subcutan eous route as directed . 2022 active Not Available Not Available Not Avai lable Wegovy 1 mg/0.5 mL subcutane ous pen injector Inject 1 mg under the skin weekly as directed . 09/14 completed Approved wegovy. Valid: 08/05/23 -09/03/24 . PA# [id number]. Not Available Not Available Not Available Wegovy 0.25 mg/0.5 mL subcutane ous pen injector Inject 0.25 mg under the skin weekly as directed . active Not Available Not Available No t Available Wegovy 0.5 mg/0.5 mL subcutane ous pen injector INJECT 0.5 MG UNDER THE SKIN EVERY WEEK 09/14 completed Not Available Not Available Not Available Vitals Date Recorded Body mass index (BMI) Body height Oxygen saturation Oxygen saturation in Arterial blood by Pulse oximetry Heart rate Respiratory rate Body temperature Body weight Systolic blood pressure Diastolic blood pressure Systolic blood pressure Diastolic blood pressure Provider Name and Address Organization Details Last Updated DateTime 3 31.6 kg/m2 162.56 cm 98 % 98 % 110 /min 16 /min 97.6 [degF] 65121 g 130 mm[Hg] 82 mm[Hg] 122 mm[Hg] 80 mm[Hg] Not Available [facility] 3 15:40:54 Date Recorded Systolic blood pressure Diastolic blood pressure Provider Name and Address Organization Details Last Updated DateTime 06/16/2023 110 mm[Hg] 80 mm[Hg] KIEL Jacques [address], [facility] [address], [place], [address], [facility] [employer] [facility] 06/16/2023 10:38:40 Date Recorded Body height Body temperature Body mass index (BMI) Body weight Heart rate Oxygen saturation Oxygen saturation in Arterial blood by Pulse oximetry Systolic blood pressure Diastolic blood pressure Provider Name and Address Organization Details Last Updated DateTime 3 162.56 cm 98.1 [degF] 31.1 kg/m2 62365.2 2 g 81 /min 98 % 98 % 128 mm[Hg] 80 mm[Hg] Felicia Donato RN [place] [facility] [employer] [facility] 3 10:04:33 Date Recorded Body mass index (BMI) Body height Oxygen saturation Oxygen saturation in Arterial blood by Pulse oximetry Heart rate Respiratory rate Body temperature Body weight Systolic blood pressure Diastolic blood pressure Provider Name and Address Organization Details Last Updated DateTime 2 31.4 kg/m2 162.56 cm 99 % 99 % 89 /min 16 /min 97.6 [degF] 30975.4 g 132 mm[Hg] 88 mm[Hg] Not Available [facility] 3 15:40:54 Date Recorded Body mass index (BMI) Body height Body weight Provider Name and Address Organization Details Last Updated DateTime 07/31/2022 30.9 kg/m2 162.56 cm 78057.63 g Not Available [facility] 12/25/2022 15:41:00 Date Recorded Body height Body temperature Provider N velma and Address Organization Details Last Updated DateTime 08/12/2022 162.56 cm 97.2 [degF] Not Available [facility] 12/25/2022 15:40:59 Social History Question Answer Notes LastModified by Organization Details LastModified Time Tobacco Smoking Status Never Smoker Not Available [facility] 12/25/2022 15:40:29 Do You Have An Advance Directive? No [id number] Information not available 12/25/2022 If You Are , What Was Your Level Of Alcohol Consumption Prior To ? None [id number] Information not available 12/25/2022 Do You Wear A Helmet When Biking? Yes MIGRATION.0301 [id number] Information not available 12/25/2022 What Is Your Level Of Caffeine Consumption? Moderate MIGRATION.0301 [id number] Information not available 12/25/2022 In The 14 Days Before Symptom Onset, Have You Had Close Contact With A Laboratory-confi rmed COVID-19 While That Case Was Ill? No MIGRATION.030 [id number] Information not available 12/25/2022 In The 14 Days Before Symptom Onset, Have You Had Close Contact With A Person Who Is Under Investigation For COVID-19 While That Person Was Ill? No MIGRATION.0301 [id number] Information not available 12/25/2022 What Type Of Diet Are You Following? SPECIFIC Intermittent Fasting MIGRATION.0301 [id number] Information not available 12/25/2022 Which Illicit Or Recreational Drugs Have You Used? Marijuana MIGRATION.0301 [id number] Information not available 12/25/2022 What Is The Highest Grade Or Level Of School You Have Completed Or The Highest Degree You Have Received? [id number] MIGRATION.0301 [id number] Information not available 12/25/2022 Have There Been Any Changes To Your Family Or Social Situation? No MIGRATION.0301 840100 Information not available 12/25/2022 Do You Use Insect Repellent Routinely? No MIGRATION.0301 653607 Information not available 12/25/2022 Do You Have A Medical Power Of Railway Signalling Engineer? No MIGRATION.0301 600896 Information not available 12/25/2022 What Was The Date Of Your Most Recent Tobacco Screening? 07/31/2022 MIGRATION.0301 338882 Information not available 12/25/2022 Have You Ever Been Counseled For Unhealthy Alcohol Use? No MIGRATION.0301 552134 Information not available 12/25/2022 What Is Your Relationship Status? MIGRATION.0301 [id number] Information not available 12/25/2022 Do You Use Your Seat Belt Or Car Seat Routinely? Yes MIGRATION.0301 179050 Information not available 12/25/2022 Do You Have Smoke And Carbon Monoxide Detectors In Your Home? Yes MIGRATION.0301 601894 Information not available 12/25/2022 Do You Use Sunscreen Routinely? Yes MIGRATION.0301 634142 Information not available 12/25/2022 Has Tobacco Cessation Counseling Been Provided? No MIGRATION.0301 267419 Information not available 12/25/2022 Have You Recently Traveled Abroad? No MIGRATION.0301 170127 Information not available 12/25/2022 Have You Used IV Drugs? No MIGRATION.0301 392396 Information not available 12/25/2022 Do You Have Any Dietary Restrictions? No MIGRATION.0301 262488 Information not available 12/25/2022 Sex: Unknown Functional Status Question Answer Note LastModified by Organizat ion Details LastModified Time Do you use any illicit or recreational drugs? Yes MIGRATION.720025 0646 Information not available 12/25/2022 Do you or have you ever used any other forms of tobacco or nicotine? No MIGRATION.831309 4653 Information not available 12/25/2022 What is your level of alcohol consumption? Occasional MIGRATION.080978 5461 Information not available 12/25/2022 Are you currently employed? 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 Occasional MIGRATION.133359 1381 Information not available 12/25/2022 Mental Status None recorded. Family History Relationship Description Onset Age of this Age Resolved Age Notes LastModified by Organization Details LastModified Time Mother Diabetes mellitus MIGRATION.441 [id number] Not available 12/25/2022 15:40:40 Mother Hyperlipidem ia MIGRATION.140 [id number] Not available 12/25/2022 15:40:41 Mother Coronary arterioscler osis MIGRATION.120 [id number] Not available 12/25/2022 15:40:41 Mother Myocardial infarction MIGRATION.377 6069114 Not available 12/25/2022 15:40:41 Father Hyperlipidem ia MIGRATION.904 [id number] Not available 12/25/2022 15:40:41 Father Carcinoma of prostate MIGRATION.843 2841930 Not available 12/25/2022 15:40:41 Paternal Grandfather Myocardial infarction MIGRATION.001 [id number] Not available 12/25/2022 15:40:41 Sister Asthma MIGRATION.594 [id number] Not available 12/25/2022 15:40:41 Paternal Grandmother Congestive heart failure MIGRATION.704 [id number] Not available 12/25/2022 15:40:41 Medical History Condition Response CANCER: SPECIFY Y EYE PROBLEMS Y HEADACHES/MIGRAINES Y NERVE DISEASE Y SKIN PROBLEMS Y URINARY/BLADDER/KIDNEY PROBLEMS BACK / NECK PROBLEMS Y Gynecological History Statement/Question Response Menses Monthly N Date of Last Pap 05/01/2020 Date of Last Mammogram 10/04/2020 Current Control Method Ablation Date of Last Colonoscopy 05/19/2020 Sexually Active? Y Obstetrics History GPAL:G 1 P 0 0 0 1 Type Value Living 1 Total 1 Immunizations Vaccine Type Date Status Note Provider Nam e and Address Organization Details Recorded Time influenza, unspecified formulation 0 completed Not Available [facility] 12/25/2022 15:43:15 influenza, unspecified formulation 9 completed Not Available [facility] 12/25/2022 15:43:15 influenza, unspecified formulation 7 completed Not Available [facility] 12/25/2022 15:43:15 Influenza, split virus, quadrivalent, PF 2 completed Not Available [facility] 12/25/2022 15:43:15 Influenza, split virus, quadrivalent, PF 8 completed Not Available [facility] 12/25/2022 15:43:16 Past Encounters Encounter ID Performer Location Encounter Start Date Encounter Closed Date Diagnosis/Indication Diagnosis SNOMED-CT Code Diagnosis ICD10 Code Diagnosis Note [id number] IKEL Jacques [facility] Internal [facility] [place] [address] [place] [address] 06/04/2021 00:00:00 06/25/2021 23:00:43 [id number] KIEL Jacques [facility] Internal [facility] [place] [address] [place] [address] 09/03/2021 00:00:00 09/03/2021 19:11:27 [id number] KIEL Jacques [facility] Internal Med [place] [address] [place] [address] 10/01/2021 00:00:00 10/05/2021 14:00:07 [id number] KIEL Jacques [facility] Internal Med [place] [address] [place] [address] 11/27/2021 00:00:00 12/24/2021 22:06:42 [id number] KIEL Jacques [facility] Internal [facility] [place] [address] [place] [address] 12/03/2021 00:00:00 12/24/2021 21:18:07 [id number] Moo Purdy MD [facility] Internal Med [place] [address] [place] [address] 06/17/2022 00:00:00 06/23/2022 10:54:57 [id number] Gonzalo King MD [facility] [place] [address] [place] [address] 07/31/2022 00:00:00 07/31/2022 15:58:49 [id number] KIEL Jacques [facility] Internal Med [place] [address] [place] [address] 08/12/2022 00:00:00 08/13/2022 18:36:17 [id number] KIEL Jacques [facility] Internal Med [place] [address] [place] [address] 12/16/2022 00:00:00 12/22/2022 16:15:04 [id number] KIEL Jacques [facility] Internal Med [place] [address] [place] [address] 06/16/2023 09:55:20 06/16/2023 10:43:48 Adult health examination 870380263 Z00.01 well exam completed. Primary fi bromyalgia syndrome 15456578 M79.7 stable on savella Hypothyroidism 26617773 E03.9 stable on thyroid supplement . due for TFTs Hyperlipidemia 03192779 E78.5 now on statin therapy from specialist , will be due for f/u labs Benign ess ential hypertension 7547400 I10 stable on hctz Anxiety 54791350 F41.9 stable on lexapro 20mg daily. Cobalamin deficiency 190 367480 E53.8 due for vit labs Diabetes m ellitus screening 293887671 Z13.1 diabetes screening due Irritable bowel syndrome characterized by constipation 156375971 K58.1 ongoing constipati on issues, worsened by wegovy. Migraine 31351711 G43.90 9 stable. Long-term drug therapy 499983095 Z79.899 Vitamin D deficiency 347 29477 E55.9 on vit d supplement due for labs Health Concerns Section Related Observation LastModified by Organization Detai ls LastModified Time None Recorded Concern Status LastModified by Organization Details LastModified Time None Recorded Advance Directives Directive N: Payers Encounter Date Sequence Insurance Name Policy Number Policy Lau Covered Member ID Lau Member ID Guarantor Name 06/16/2023 1 [employer] 112 Andrei Lindsay [id number] Terry L Neftali Notes Date Note Type Note Provider Name and Address Organization Details Recorded Time 022 text/h tml Anxiety/DepressionReported bypatient.Severity:denies suicidal ideations; able to maintain relationships; does not interfere with activities of daily living Duration:symptoms lasting over 2 weeks Onset/Timing:still present Context:no major life stressors Modifying Factors:medications as directed Associated Symptoms:denies homicidal ideations; no significant weight gain; no significant weight loss; no visual/auditory hallucinations; no delusions; no shortness of breath; mood good; no anxiety; no crying spells; no panic; no isolation; sleeping well; appetite good; energy good; no apathy; maintaining functionality HypertensionReported bypatient.Duration:has noted for years Onset/Timing:better Alleviating Factors:medication Self Care:not under emotional stress Associated Symptoms:no shortness of breath; no fatigue; no palpitations; no decline in exercise capacity; no snoringHypothyroidismReported bypatient.Quality:not changing Duration:constant Onset/Timing:still present Context/Risk:normal thyroid levels; no history of head or neck radiation during childhood; no history of thyroid disease; no history of hyperthyroidism; no excess iron exposure;history of hypothyroidism;female gender Modifying Factors:medication Exercisegets exercise Associated Symptoms:no cold intolerance; no heat intolerance; no weight loss; no weight gain; no double vision; no dry eyes; no hoarseness; no difficulty swallowing; no neck masses; no deepening of the voice; no fast heart rate; no increased blood pressure; no palpitations; no chest pain; no chest tightess or pressure; no constipation; no diarrhea; no vomiting; no decreased appetite; no loose stools; no irregular menstrual periods; no excessive sweating; no joint pain; no numbness; no tingling of the hands or feet; no dry skin; no tremor; no nervousness; no anxiety; no depression; no fatigue; no sleep difficulties; no skin changes; no hair changes Not Available [facility] 06/23/2022 10:54:57 023 text/h tml Anxiety/DepressionReported bypatient.Quality:symptoms improved Severity:denies suicidal ideations; able to maintain relationships; does not interfere with activities of daily living Duration:symptoms lasting over 2 weeks; stablizing Onset/Timing:still present Context:major life stressors([facility] [employer]) Modifying Factors:medications as directed Associated Symptoms:denies homicidal ideations; no significant weight gain; no significant weight loss; no visual/auditory hallucinations; no delusions; no shortness of breath; mood good; no anxiety; no crying spells; no panic; no isolation; sleeping well; appetite good; energy good; no apathy; maintaining functionalityHyperlipidemiaReported bypatient.Duration:chronic Control:usually well controlled Compliance:compliant; compliant with diet; exercises Complications:no coronary artery disease; no peripheral artery disease; no cardiovascular disease Risk Factors:hypertensionHypertensionRepor efraín bypatient.Duration:has noted for years Onset/Timing:better Alleviating Factors:medication Self Care:under emotional stress Associated Symptoms:no shortness of breath; no palpitations; no decline in exercise capacity; no snoring;fatigueHypothyroidismReported bypatient.Quality:not changing Duration:constant Onset/Timing:still present Context/Risk:normal thyroid levels; no history of head or neck radiation during childhood; no history of thyroid disease; no history of hyperthyroidism; no excess iron exposure;history of hypothyroidism;female gender Modifying Factors:medication Exercisegets exercise Associated Symptoms:no cold intolerance; no heat intolerance; no weight loss; no weight gain; no double vision; no dry eyes; no hoarseness; no difficulty swallowing; no neck masses; no deepening of the voice; no fast heart rate; no increased blood pressure; no palpitations; no chest pain; no chest tightess or pressure; no constipation; no diarrhea; no vomiting; no decreased appetite; no loose stools; no irregular menstrual periods; no excessive sweating; no joint pain; no numbness; no tingling of the hands or feet; no dry skin; no tremor; no nervousness; no anxiety; no depression; no sleep difficulties; no skin changes; no hair changes;fatigue Not Available [facility] 12/22/2022 16:15:04 023 text/h tml Anxiety/DepressionReported bypatient.Severity:denies suicidal ideations; able to maintain relationships; does not interfere with activities of daily living Context:no major life stressors Associated Symptoms:denies homicidal ideations; no significant weight gain; no significant weight loss; no visual/auditory hallucinations; no delusions; no shortness of breathHypertensionReported bypatient.Onset/Timing:better Associated Symptoms:no shortness of breath; no fatigue; no palpitations; no decline in exercise capacity; no snoringHypothyroidismReported bypatient.Onset/Timing:better Context/Risk:normal thyroid levels; no history of head or neck radiation during childhood; no history of thyroid disease; no history of hypothyroidism; no history of hyperthyroidism; no excess iron exposure;history of hypothyroidism;female gender Exercisegets exercise Associated Symptoms:no cold intolerance; no heat intolerance; no weight loss; no weight gain; no double vision; no dry eyes; no hoarseness; no difficulty swallowing; no neck masses; no deepening of the voice; no fast heart rate; no increased blood pressure; no palpitations; no chest pain; no chest tightess or pressure; no constipation; no diarrhea; no vomiting; no decreased appetite; no loose stools; no irregular menstrual periods; no excessive sweating; no joint pain; no numbness; no tingling of the hands or feet; no dry skin; no tremor; no nervousness; no anxiety; no depression; no fatigue; no sleep difficulties; no skin changes; no hair changes wellnessFibromyalgia hx. on medication. stable. KIEL Jacques [address] [place] [address], [place], [address], [facility] 06/26/2023 17:17:55 OBGyn Episode No OBEpisode recorded.
--- OUTSIDE RECORDS SUMMARY | 2025-04-06 08:40 | XMS_ITS | Patient Health Record ---
Author Organization [facility] Address [address] [place] [address] Care Team Providers Care Radiation Protection Technician Name Role Phone Michelle Lopez Primary Care Provider Rufino Ortiz Unavailable [phone] Allergies No Known Allergies Reason For Referral No Information Medications Medication SIG (Take, Route, Frequency, Duration) Notes Start Date End Date Status Ondansetron HCl 8 MG 1 tablet Orally twice a day for 14 days As needed 03/17/2025 Active clonazePAM 0.5 MG 1 tablet Oral four times a day for 30 days As needed 04/04/2025 Active Savella 50 MG TAKE 2 TABLET BY MOUTH EVERY MORNING AND THEN 1 TABLET EVERY EVENING Oral for 30 Days Not-Taking Doxycycline Hyclate 100 MG TAKE 1/2 TABLET BY MOUTH EVERY DAY Oral for 30 Days Not-Taking Sertraline HCl 100 MG 1.5 tablet Orally Once a day for 30 days Active clonazePAM 0.5 MG Oral for 30 Days Not-Taking guaiFENesin-Codeine 100-10 MG/5ML TAKE 10 ML BY MOUTH EVERY 6 HOURS NEEDED Oral for 3 Days Not-Taking Amoxicillin 875 MG Oral for 7 Days Not-Taking Wegovy 1 MG/0.5ML Subcutaneous for 28 Days Not-Taking Amoxicillin 875 MG TAKE 1 TABLET BY MOUTH TWICE DAILY Oral for 5 Days Not-Taking Ergocalciferol 1.25 MG (87221 UT) Oral 12/29/2023 Active Fluconazole 150 MG TAKE 1 TABLET BY MOUTH EVERY 4 DAYS Oral for 8 Days Not-Taking tiZANidine HCl 4 MG Oral 12/29/2023 Active Wegovy 0.5 MG/0.5ML Subcutaneous for 28 Days Not-Taking HYDROcodone-Acetamino phen 5-325 MG Oral 12/29/2023 Active Miebo 1.338 GM/ML INSTILL ONE DROP INTO BOTH EYES FOUR TIMES DAILY . BOTTLE PREPARATION IS REQUIRED. REFER TO PACKAGE INSERT FOR SPECIAL PREPARATION AND ADMIN Ophthalmic for 30 Days Active Savella 50 MG TAKE 2 TABLET BY MOUTH EVERY MORNING AND THEN 1 TABLET EVERY EVENING Oral for 30 Days Active Saxenda 18 MG/3ML Subcutaneous for 44 Days Active Ketorolac Tromethamine 10 MG Oral for 7 Days Active Rosuvastatin Calcium 5 MG Oral for 90 Days Active Fluconazole 150 MG Oral for 2 Days Active Synthroid 100 MCG Oral for 30 Days Active Spironolactone 25 MG Oral for 30 Days Active Sertraline HCl 25 MG Take 1 tablet by mouth once a day for 7 days, then take 2 tablets once a day for 7 days. for 14 days replacing lexapro Active Wegovy 0.5 MG/0.5ML INJECT 0.5 MG UNDER THE SKIN EVERY WEEK Subcutaneous for 28 Days Not-Taking Escitalopram Oxalate 20 MG 0.5 tablet Oral Once a day for 7 days Active Immunizations Vaccine Route Administration Date Status Comme nts Influenza virus vaccine, quadrivalent (IIV4), split virus, 0.25 mL dosage Unknown 06/27/2020 Administered Influenza, injectable, MDCK, preservative free Unknown 09/05/2019 Administered Influenza, unspecified formulation Unknown 07/09/2022 A dministered Pfizer Biontech Covid-19 Vac cine 2nd dose Unknown 12/21/2020 Administered Pfizer Biontech Covid-19 Vac cine 2nd dose Unknown 01/11/2021 Administered Social History Tobacco Use: Social History Observation Description Date Details (start date - stop date) Never Smoker NA - NA Sex Assigned At : Social History Observation Description Sex Assigned At Female Tobacco Control (Standard) Question Answer Notes Tobacco use: Nonsmoker Problems Problem Type SNOMED Code ICD Code Onset Dates Problem Status W/U Status Risk Notes Problem Generalized anxiety disorder (51156326) Generalized anxiety disorder (F41.1) 4 Active confirmed Problem Fibromyalgia (659341005) Fibromyalgia (M79.7) 4 Active confirmed Vital Signs Heart Rate 90 /min 03/03/2025 Height-cm 160.02 cm 03/03/2025 Blood pressure diastolic 98 mm Hg 03/03/2025 Weight-kg 86.18 kg 03/03/2025 Height 63.00 in 03/03/2025 Blood pressure systolic 145 mm Hg 03/03/2025 Weight 190 lbs 03/03/2025 BMI 33.65 kg/m2 03/03/2025 Encounters Encounter Location Date Provider Diagnosis [facility] [address] [place] [address] 04/04/2025 Rufino Garcia Generalized anxiety disorder F41.1 ; Negative depression screening Z13.31 ; Encounter for screening for cardiovascular disorders Z13.6 ; Dietary counseling and surveillance Z71.3 and Fibromyalgia M79.7 [facility] [address] [place] [address] 03/03/2025 Rufino Garcia Negative depression screening Z13.31 ; Generalized anxiety disorder F41.1 ; Encounter for screening for cardiovascular disorders Z13.6 ; Dietary counseling and surveillance Z71.3 and Fibromyalgia M79.7 [facility] [address] [place] [address] 07/01/2024 Rufino [facility], [facility] [address] [place] [address] 07/01/2024 Rufino Garcia Generalized anxiety disorder F41.1 [facility], [facility] [address] [place] [address] [facility], [facility] [address] [place] [address] 02/22/2025 Rufino Garcia Generalized anxiety disorder F41.1 [facility] [address] [place] [address] 02/22/2025 Rufino Garcia Generalized anxiety disorder F41.1 [facility], [facility] [address] [place] [address] 03/05/2025 Rufino Garcia Generalized anxiety disorder F41.1 [facility], [facility] [address] [place] [address] 03/09/2025 Rufino [facility], [facility] [address] [place] [address] 03/14/2025 Rufino Garcia [facility] [employer] [facility] [address] [place] [address] 03/14/2025 [facility] [address] [place] [address] 03/16/2025 [facility] [address] [place] [address] 03/17/2025 Rufino Garcia Nausea R11.0 Assessments Encounter Date Diagnosis (ICD Code) Assessment Notes Treatment Notes Treatment Clinical Notes Section Notes 03/17/2025 Nausea (ICD-10 - R11.0) 04/04/2025 Generalized anxiety disorder (ICD-10 - F41.1) 03/03/2025 Negative depression screening (ICD-10 - Z13.31) 03/05/2025 Generalized anxiety disorder (ICD-10 - F41.1) 07/01/2024 Generalized anxiety disorder (ICD-10 - F41.1) 02/22/2025 Generalized anxiety disorder (ICD-10 - F41.1) 02/22/2025 Generalized anxiety disorder (ICD-10 - F41.1) 03/03/2025 Generalized anxiety disorder (ICD-10 - F41.1) cont escitalopram 20mg daily, clonazepam 1mg qid prn 03/03/2025 Encounter for screening for cardiovascular disorders (ICD-10 - Z13.6) 04/04/2025 Negative depression screening (ICD-10 - Z13.31) 03/03/2025 Dietary counseling and surveillance (ICD-10 - Z71.3) 04/04/2025 Encounter for screening for cardiovascular disorders (ICD-10 - Z13.6) 04/04/2025 Dietary counseling and surveillance (ICD-10 - Z71.3) 03/03/2025 Fibromyalgia (ICD-10 - M79.7) managed by pcp 04/04/2025 Fibromyalgia (ICD-10 - M79.7) managed by pcp 03/03/2025 Priscilla Lindsay presents with severe anxiety exacerbated by an ongoing lawsuit, causing increased fibromyalgia flare-ups and water retention, despite current treatment with clonazepam and escitalopram. Generalized Anxiety Disorder with Panic Features Assessment: Patient reports intense anxiety, described as through the roof, which is exacerbated by an ongoing lawsuit. Current treatment with clonazepam and escitalopram appears to be insufficient. Patient denies suicidal or homicidal ideation. History suggests possible panic attacks, though not explicitly stated as pure panic. Previous trial of Wellbutrin during was ineffective. Recent cardiac workup, including echo and EKG, was normal, indicating that the patient's heart is strong enough for medication adjustments. Plan: - Discontinue escitalopram 20 mg PO daily - Taper: Reduce to 10 mg PO daily for one week, then discontinue - Initiate sertraline (Zoloft) - Week 1: 25 mg PO daily - Week 2: Increase to 50 mg PO daily - Week 3: Increase to 100 mg PO daily - Patient preference to take sertraline in the morning noted - Informed patient that sertraline has FDA approval for panic disorder, generalized anxiety disorder, and depression - Advised patient that sertraline may have less potential for weight gain compared to escitalopram - Follow up to assess efficacy and tolerability of medication change Fibromyalgia with Water Retention Assessment: Patient reports fibromyalgia flare-ups exacerbated by stress and anxiety. Significant water retention noted, causing pain and affecting weight management efforts. Despite adherence to a 1500 calorie diet, adequate hydration, protein-rich breakfast, and walking three miles weekly, patient has been unable to maintain weight loss due to water retention. Previous weight loss of 12 pounds was regained with an additional 6 pounds. Severe edema has been reported, affecting mobility and causing concern about potential cardiac issues. Plan: - Change diuretic medication to spironolactone (dose and frequency not specified) - Continue current diet and exercise regimen - Monitor for improvement in water retention and weight management - Educate patient on the relationship between stress, anxiety, and fibromyalgia symptoms Chronic Pain Management Assessment: Patient is currently managing chronic pain associated with fibromyalgia. Tizanidine is being used at night for symptom management. Plan: - Continue tizanidine at night for pain management (dose not specified) - Monitor efficacy of pain management regimen in conjunction with anxiety treatment the note is transcribed using speech recognition software. It is a reflection of a visit with the patient. It might have some inaccuracy, including medication names and transcribing errors, though efforts have been made to correct them. Plan Of Treatment No Information Insurance Providers Payer Name Payer Address Payer Phone Subscriber Number Group Number Insured Name Patient Relationship to Insured Coverage Start Date Coverage End Date [employer] [employer] [address] [place] [address] [id number] JOSE LINDSAY Spouse - patient is the spouse of the insured Medical (General) History Medical History History ICD Code Problems: Fibromyalgia Generalized anxiety disorder , Imported from [employer]: Th e patient has had multiple encounters with healthcare providers from May 2021 to May 2023. The most significant visit was on June 16, 2023, with KIEL Jacques. During this periodic preventive care visit, the patient was evaluated for several conditions. These include adult health examination, anxiety, benign essential hypertension, cobalamin deficiency, diabetes mellitus screening, hyperlipidemia, hypothyroidism, irritable bowel syndrome characterized by constipation, long-term drug therapy, migraine, primary fibromyalgia syndrome, and vitamin D deficiency. The patient's medical history suggests a complex health profile requiring ongoing management and monitoring. Imported from [employer]: On 02/18/2025 the patient had an office visit with Dr. Moo Purdy. During this visit, several health issues were noted, including anxiety, benign essential hypertension, blood glucose outside the reference range, cobalamin deficiency, and a family history of coronary arteriosclerosis. The patient also has fibromyalgia, headaches, hyperlipidemia, hypothyroidism, and irritable bowel syndrome characterized by constipation. Additionally, the patient is undergoing long-term drug therapy and is classified as obese class I. Screening for malignant neoplasm of the colon and a screening mammography were conducted, and vitamin D deficiency was identified. Surgical History Surgery Date(Month/Year) Removal of gallbladder (22471) Endometr ablate thermal (37811) Removal of gallbladder (35418) 1 Endometrial ablation (52073) 05/27/2011
--- OUTSIDE RECORDS SUMMARY | 2025-04-06 08:40 | XMS_ITS | Data Portability ---
Author Organization [facility] DARIUS Lola Staples Address [address] [place] [address] Care Team Providers Care Industrial Technologist Name Role Phone YAMIL HAYDEN Primary Care Provider ARMANDO Howell Authorization Nurse Assessment Encounter Date Assessment Date Assessment LastModified by Organization Details LastModified Time 02/09/2024 02/09/2024 Mammogram due in march pap smear UTD and all normal now. hx of atypical cells that cleared colonoscopy 2020, repeat in 5 years. Not available 02/09/2024 11:29:47 08/09/2024 08/09/2024 Mammogram due in march pap smear UTD and all normal now. hx of atypical cells that cleared colonoscopy 2019, repeat in 5 years. Not available 08/09/2024 11:16:10 02/18/2025 02/18/2025 Mammogram due in april pap smear UTD and all normal now. hx of atypical cells that cleared colonoscopy 2020, repeat in 5 years. Thyroid is normal, triglycerides are elevated at 234, fasting sugar and hemoglobin A1c are in normal ranges. Kidney and liver function is normal vitamin B2 is normal. Estrogen and FSH hormone are appearing in menopausal range. Vitamin B12 and folate are normal insulin is normal progesterone is low in a postmenopausal range testosterone is also normal and vitamin-D is slightly low. Not available 02/18/2025 15:10:46 Plan of Treatment Reminders Order Date Submit Date Provider Last Modified By Organization Details Last Modified Time Details Appointments ANY 15 2024 02:15P KIEL Lucas Not available Not available Not available Lab CBC w/ auto diff 04/25/ 2025 09/20/2 025 [email or web address] [facility], [address], [address], [place], [address], 02/18/2025 15:21:16 CMP, serum or plasma 2024 025 [email or web address] [facility], [address], [address], [place], [address], 02/18/2025 15:21:15 HbA1c (hemoglob in A1c), blood 2024 025 [email or web address] [facility], [address], [address], [place], [address], 02/18/2025 15:21:16 lipid panel, serum 2024 025 [email or web address] [facility], [address], [address], [place], [address], 02/18/2025 15:21:15 vitamin D, 25-hydrox y, total, serum 2024 025 [email or web address] [facility], [address], [address], [place], [address], 02/18/2025 15:21:15 T3, free, serum or plasma 2024 025 [email or web address] [facility], [address], [place], [address], 02/18/2025 15:21:16 TSH + free T4, serum 2024 025 [email or web address] [facility], [facility], [place], [address], 02/18/2025 15:21:15 vitamin B12 + folate, serum or blood 2024 025 [email or web address] [facility], [address], [place], [address], 02/18/2025 15:21:15 vitamin B6 (pyridoxi ne), plasma 2024 025 [email or web address] [facility], [address], [address], [place], [address], 02/18/2025 15:21:15 vitamin B2 (riboflav in), serum or plasma 2024 025 [email or web address] [facility], [address], [address], [place], [address], 02/18/2025 15:21:15 CBC w/ auto diff 2023 024 [email or web address] [facility], [address], [address], [place], [address], 10/04/2024 10:55:12 CMP, serum or plasma 2023 024 [email or web address] [facility], [address], [address], [place], [address], 10/04/2024 10:55:12 HbA1c (hemoglob in A1c), blood 2023 024 [email or web address] [facility], [address], [address], [place], [address], 10/04/2024 10:55:13 lipid panel, serum 2023 024 [email or web address] [facility], [address], [address], [place], [address], 10/04/2024 10:55:12 vitamin D, 25-hydrox y, total, serum 2023 024 [email or web address] [facility], [address], [address], [place], [address], 10/04/2024 10:55:13 T3, free, serum or plasma 2023 024 [place] [address] [facility], [address], [address], [place], [address], 10/04/2024 10:55:12 TSH + free T4, serum 2023 024 [place] [address] [facility], [address], [address], [place], [address], 10/04/2024 10:55:13 vitamin B12 + folate, serum or blood 2023 024 [place] [address] [facility], [address], [address], [place], [address], 10/04/2024 10:55:12 vitamin B6 (pyridoxi ne), plasma 2023 024 [place] [address] [facility], [address], [address], [place], [address], 10/04/2024 10:55:13 vitamin B2 (riboflav in), serum or plasma 2023 024 [place] [address] [facility], [address], [address], [place], [address], 10/04/2024 10:55:13 CBC w/ auto diff 2023 024 [facility], [address], [address], [place], [address], 03/02/2024 13:04:17 CMP, serum or plasma 2023 024 [facility], [address], [address], [place], [address], 03/02/2024 13:04:21 lipid panel, serum 2023 024 [facility], [address], [address], [place], [address], 03/02/2024 13:04:40 vitamin D, 25-hydrox y, total, serum 2023 [facility], [address], [address], [place], [address], 03/02/2024 13:03:44 HbA1c (hemoglob in A1c), blood 2023 [facility], [address], [address], [place], [address], 03/02/2024 13:03:48 T3, free, serum or plasma 2023 [facility], [facility] [address], [address], [place], [address], 03/02/2024 13:04:31 TSH + free T4, serum 2023 [facility]UL[facility], [address], [address], [place], [address], 03/02/2024 13:03:37 vitamin B12 + folate, serum or blood 2023 024 [facility], [address], [address], [place], [address], 03/02/2024 13:04:06 vitamin B6 (pyridoxi ne), plasma 2023 024 [facility], [address], [address], [place], [address], 03/02/2024 13:04:01 vitamin B2 (riboflav in), serum or plasma 2023 024 [facility], [address], [address], [place], [address], 03/02/2024 13:03:53 Referral None recorded. Procedures colonosco py screening (PROC) 2024 025 [email or web address] Anand espinoza MD, [address], [address], [place], [address], 02/18/2025 15:21:51 Surgeries None recorded. Imaging MAMMO, screening , digital, bilateral 2024 025 [facility], [address] [facility], [place], [address], 02/23/2025 10:15:11 MAMMO, screening , digital, bilateral 2023 024 [facility], [address], [address], [place], [address], 03/02/2024 13:04:12 Medication Orders milnacipr an 50 mg tablet 2024 025 [facility], [address], [place], [place], [id number], 02/18/2025 15:33:52 Savella 50 mg tablet 2023 024 [id number], [address], [place], [id number], 02/09/2024 11:55:33 tizanidin e 4 mg tablet 2023 024 [facility], [address], [place], [place], [id number], 02/09/2024 11:19:45 ketorolac 10 mg tablet 2023 024 [facility], [address], [place], [place], [id number], 08/09/2024 11:09:17 naltrexon e 50 mg tablet 2023 025 [facility], [address] [place], [place], [id number], 02/04/2025 18:04:09 hydrochlo rothiazid e 25 mg tablet 2023 024 [email or web address], [address], [place], [place], [id number], 02/18/2025 14:48:58 Synthroid 100 mcg tablet 2023 024 [facility], [address], [place], [place], [id number], 02/09/2024 11:19:43 Patient TargetsNo targets recorded. Patient Instructions Encounter Date Encounter Id Patient Instructions Last Modified By Organization Details Last Modified Time 02/18/2025 [id number] A healthy lifestyle: care instructions [place] [id number] Not available 03/06/2025 18:46:48 Reason for Referral None Reported. Results Created Date Observation Date Name Description Value Unit Range Abnormal Flag Note LastModifiedBy Organization Detail LastModifiedTime 04/01/20 24 03/31/2024 MAMMO , scree eufemia, digit al, bilat eral No observ ation record ed. [address], [address], 04/06/2024 01:47:24 04/02/20 24 03/31/2024 MAMMO , scree eufemia, digit al, bilat eral No observ ation record ed. [address], [address], 04/05/2024 22:23:43 05/03/20 24 05/03/2024 MAMMO , diagn ostic , digit al, unila teral No observ ation record ed. [address] [place], [address], 08/28/2024 14:36:55 05/27/20 24 03/27/2023 imagi ng inter preta tion No observ ation record ed[facility] [place] [address] Imaging [address], [place], [address], 05/27/2024 18:01:23 06/14/20 24 06/08/2024 ultra sound guide d core biops y (PROC ) No observ ation record ed. [address] Radiology [address], [place], [address], 08/28/2024 14:36:54 03/01/20 25 02/24/2025 CT, coron katie calci um score No observ ation record ed. [address] Main Out Patient Lab [address] [facility], [place], [address], 03/22/2025 00:43:14 Result Notes None recorded. Problems Name Problem SNOMED Code Status Onset Date Resolution Date Notes Provider Name and Address Organization Details Recorded Time Vitamin D deficiency 32857995 Active 2023 KIEL Jacques Attn: Shasta haji,[address] [facility], [place], [address], [facility] 4 11:59:47 Cobalamin deficiency 894323678 Active 2023 KIEL Jacques Attn: Shasta haji,[address] [facility], [place], [address], [facility] - [facility] 4 11:59:49 Obesity 929954868 Active 2023 KIEL Jacques Attn: Shasta haji,[address] [facility], [place], [address], [facility] 4 11:59:52 Headache 89232469 Active 2023 KIEL Jacques Attn: Shasta haji,[address] [facility], [place], [address], [place] [facility] 4 11:59:53 Family history of coronary arterioscle rosis 312186745 Active 2023 KIEL Jacques Attn: Accountin g,[address] [facility], [place], [address], [place] [facility] 4 11:59:56 Irritable bowel syndrome characteriz ed by constipatio n 657591773 Active 2023 KIEL Jacques Attn: Accountin g,[address] [facility], [place], [address], [place] [facility] 4 11:59:57 Anxiety 18656574 Active 2023 KIEL Jacques Attn: Accountin g,[address] [facility], [place], [address], [place] [facility] 4 11:59:59 Benign essential hypertensio n 8892672 Active 2023 KIEL Jacques Attn: Accountin g,[address] [facility], [place], [address], [place] [facility] 4 12:00:00 Hypothyroid ism 40541703 Active 2023 KIEL Jacques Attn: Accountin g,[address] [facility], [place], [address], [place] [facility] 4 12:00:02 Hyperlipide fidencio 22013318 Active 2023 KIEL Jacques Attn: Accountin g,[address] [facility], [place], [address], [place] [facility] 4 12:00:04 Fibromyalgi a 122990302 Active 2023 KIEL Jacques Attn: Accountin g,[address] [facility], [place], [address], [place] [facility] 4 12:00:05 Long-term drug therapy Active 2023 KIEL Jacques Attn: Shasta haji,[address], [place], [address], [facility] 4 11:18:13 Body mass index 30+ - obesity 980414099 Active 2023 KIEL Jacques Attn: Shasta haji,[address] [facility], [place], [address], [facility] 4 11:18:28 Blood glucose outside reference range 797684009 Active 2023 KIEL Jacques Attn: Shasta haji,[address] [facility], [place], [address], [facility] 4 14:35:06 Obese class I [id number] 07 Active 2024 KIEL Jacques Attn: Shasta haji,[address] [facility], [place], [address], [facility] 5 18:46:46 Problem Notes None recorded. Procedures Surgical History Date Name Laterality Status Provider Name and Address Organization Details Recorded Time Hernia Repair completed Shannon Reardon MA [facility] 02/09/2024 11:02:00 Imaging Results None recorded. Procedure Notes None recorded. Medical Equipment None Reported. Allergies No known drug allergies Medications Name Sig Start Date Stop Date Status Note LastModified by Organization Details LastModified Time metformin 500 mg tablet Take 1 tablet twice a day by oral route. 08/28 completed Not Available Not Available Not Available tizanidine 4 mg tablet Take 1 tablet by mouth every 6 hours as needed. 2024 active Not Available Not Available Not Avai lable fluconazole 150 mg tablet TAKE 1 TABLET BY MOUTH EVERY DAY FOR 1 DAY NEEDED 09/24 completed Not Available Not Available Not Available naltrexone 50 mg tablet TAKE 1/2 TABLET BY MOUTH TWICE DAILY 02/04 completed Not Available Not Available Not Available Synthroid 100 mcg tablet Take 1 tablet by mouth daily. 2024 active Not Available Not Available Not Avai lable clonazepam 0.5 mg tablet TAKE 1 TABLET BY MOUTH FOUR TIMES DAILY NEEDED active Not Available Not Available No t Available potassium chloride ER 10 mEq tablet,exte nded release TAKE 1 TABLET BY MOUTH TWICE DAILY WITH MEALS 02/18 completed Not Available Not Available Not Available spironolact one 25 mg tablet TAKE 1 TABLET BY MOUTH DAILY active Not Available Not Available No t Available ketorolac 10 mg tablet Take 1 tablet by mouth every 6 hours as needed for 5 days. 2024 active Not Available Not Available Not Avai lable amoxicillin 875 mg tablet TAKE 1 TABLET BY MOUTH EVERY 12 HOURS 09/24 completed Not Available Not Available Not Available fluorometho lone 0.1 % eye drops,suspe nsion active Not Available Not Available Not Available codeine 10 mg-guaifene sin 100 mg/5 mL oral liquid TAKE 10 ML BY MOUTH EVERY 6 HOURS NEEDED 02/04 completed Not Available Not Available Not Available hydrochloro thiazide 25 mg tablet Take 1 tablet by mouth daily. 2024 active Not Available Not Available Not Avai lable furosemide 20 mg tablet TAKE 1 TABLET BY MOUTH DAILY 02/18 completed Not Available Not Available Not Available ergocalcife rol (vitamin D2) 1,250 mcg (50,000 unit) capsule Take 1 capsule every week by oral route. 2024 active Not Available Not Available Not Avai lable loteprednol etabonate 0.5 % eye drops,suspe nsion active Not Available Not Available Not Available doxycycline hyclate 100 mg tablet TAKE 1/2 TABLET BY MOUTH EVERY DAY 02/04 completed Not Available Not Available Not Available escitalopra m 20 mg tablet Take 1 tablet as needed by oral route for 90 days. active Not Available Not Available No t Available rosuvastati n 5 mg tablet Take every day by oral route for 90 days. 09/24 completed Not Available Not Available Not Available rosuvastati n 10 mg tablet Take 1 tablet every day by oral route. active 2 tab Not Available Not Available No t Available potassium chloride ER 10 mEq tablet,exte nded release(par t/cryst) Take 1 tablet by mouth daily. 2024 active Not Available Not Available Not Avai lable bupropion HCl XL 150 mg 24 hr tablet, extended release Take 1 tablet by mouth daily. 02/18 completed Not Available Not Available Not Available milnacipran 50 mg tablet take 2 tabs po AM, 1 tab po PM 2024 active Not Available Not Available Not Avai lable Saxenda 3 mg/0.5 mL (18 mg/3 mL) subcutaneou s pen injector active Not Available Not Available Not Available Wegovy 1 mg/0.5 mL subcutaneou s pen injector 12/24 completed Not Available Not Available Not Available Wegovy 0.25 mg/0.5 mL subcutaneou s pen injector 12/24 completed Not Available Not Available Not Available Wegovy 0.5 mg/0.5 mL subcutaneou s pen injector INJECT 0.5 MG UNDER THE SKIN EVERY WEEK 12/24 completed Not Available Not Available Not Available Miebo (PF) 100 % eye drops INSTILL ONE DROP INTO BOTH EYES FOUR TIMES DAILY . BOTTLE PREPARATI ON IS REQUIRED. REFER TO PACKAGE INSERT FOR SPECIAL PREPARATI ON AND ADMIN active Not Available Not Available No t Available Zepbound 2.5 mg/0.5 mL subcutaneou s pen injector 01/05 completed Not Available Not Available Not Available Vitals Date Recorded Body mass index (BMI) Body weight Respiratory rate Systolic blood pressure Diastolic blood pressure Provider Name and Address Organization Details Last Updated DateTime 02/09/2024 31.1 kg/m2 14547.1 8 g 16 /min 140 mm[Hg] 80 mm[Hg] KIEL Jacques Attn: Shasta g,[address] [place], [address], [facility] 4 11:29:58 Date Recorded Body height Heart rate Oxygen saturation Oxygen saturation in Arterial blood by Pulse oximetry Systolic blood pressure Diastolic blood pressure Provider Name and Address Organization Details Last Updated DateTime 4 164.59 cm 89 /min 98 % 98 % 138 mm[Hg] 68 mm[Hg] Shannon Reardon MA [facility] 4 11:05:43 Date Recorded Systolic blood pressure Diastolic blood pressure Provider Name and Address Organization Details Last Updated DateTime 02/18/2025 148 mm[Hg] 80 mm[Hg] KIEL Jacques Attn: Accounting,[address] [place], [address], [facility] 02/18/2025 15:28:57 Date Recorded Body height Body mass index (BMI) Body weight Respiratory rate Oxygen saturation Oxygen saturation in Arterial blood by Pulse oximetry Heart rate Systolic blood pressure Diastolic blood pressure Provider Name and Address Organization Details Last Updated DateTime 5 164.59 cm 31.5 kg/m2 32419.3 7 g 18 /min 98 % 98 % 90 /min 142 mm[Hg] 82 mm[Hg] Gilberto Shaikh MA [facility] 5 14:52:00 Date Recorded Systolic blood pressure Diastolic blood pressure Provider Name and Address Organization Details Last Updated DateTime 08/09/2024 132 mm[Hg] 84 mm[Hg] KIEL Jacques Attn: Accounting,[address] [place], [address], [facility] 08/09/2024 11:32:04 Date Recorded Body height Body mass index (BMI) Body weight Respiratory rate Oxygen saturation Oxygen saturation in Arterial blood by Pulse oximetry Heart rate Systolic blood pressure Diastolic blood pressure Provider Name and Address Organization Details Last Updated DateTime 4 164.59 cm 31.1 kg/m2 43875.3 8 g 18 /min 99 % 99 % 93 /min 138 mm[Hg] 88 mm[Hg] Gilberto Shaikh MA [facility] 4 11:15:18 Social History Question Answer Notes LastModified by Organizat ion Details LastModified Time Tobacco Smoking Status Never Smoker Shannon Reardon MA null, [facility] 02/09/2024 10:59:06 Do You Have An Advance Directive? Yes Information not available 02/09/2024 Are You Blind Or Do You Have Difficulty Seeing? Yes Glasses Information not available 02/09/2024 What Is Your Level Of Caffeine Consumption? Moderate Information not available 02/09/2024 In The 14 Days Before Symptom Onset, Have You Had Close Contact With A Laboratory-confir med COVID-19 While That Case Was Ill? No Information not available 02/09/2024 In The 14 Days Before Symptom Onset, Have You Had Close Contact With A Person Who Is Under Investigation For COVID-19 While That Person Was Ill? No Information not available 02/09/2024 Have You Been To An Area Known To Be High Risk For COVID-19? No Information not available 02/09/2024 Are You Deaf Or Do You Have Serious Difficulty Hearing? No Information not available 02/09/2024 What Type Of Diet Are You Following? REGULAR Information not available 02/09/2024 What Is The Highest Grade Or Level Of School You Have Completed Or The Highest Degree You Have Received? [id number] Information not available 02/09/2024 Are There Any Guns Present In Your Home? Yes Information not available 02/09/2024 What Was The Date Of Your Most Recent Tobacco Screening? 02/18/2025 Information not available 02/18/2025 What Is Your Relationship Status? Information not available 02/09/2024 Do You Use Your Seat Belt Or Car Seat Routinely? Yes Information not available 02/09/2024 Do You Have Smoke And Carbon Monoxide Detectors In Your Home? Yes Information not available 02/09/2024 Do You Use Sunscreen Routinely? Yes Information not available 02/09/2024 Has Tobacco Cessation Counseling Been Provided? No Information not available 08/09/2024 Sex: Unknown Functional Status Question Answer Note LastModified by Organizat ion Details LastModified Time Do you use any illicit or recreational drugs? No Information not available 08/09/2024 Do you or have you ever used any other forms of tobacco or nicotine? No Information not available 08/09/2024 What is your level of alcohol consumption? None Information not available 02/09/2024 Are you currently employed? Yes Information not available 02/09/2024 Are you able to care for yourself? 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 Occasional Information not available 02/09/2024 Mental Status Question Answer Note LastModified by Organization D etails LastModified Time Do you feel stressed (tense, restless, nervous, or anxious, or unable to sleep at night)? [id number] Information not available 02/09/2024 Family History Relationship Description Onset Age of this Age Resolved Age Notes LastModified by Organization Details LastModified Time Mother Diabetes mellitus mebyma Not available 2023 10:57:38 Mother Heart disease mebyma Not available 2023 10:57:49 Mother Hypercholest erolemia mebyma Not available 2023 11:03:10 Father Heart disease mebyma Not available 2023 10:57:49 Father Malignant neoplasm of prostate mebyma Not available 2023 11:02:54 Father Hypercholest erolemia mebyma Not available 2023 11:03:04 Sister Diabetes mellitus mebyma Not available 2023 10:57:58 Sister Hypercholest erolemia mebyma Not available 2023 11:03:13 Paternal Grandfather Heart disease mebyma Not available 2023 10:58:16 Paternal Grandmother Heart disease mebyma Not available 2023 10:58:20 Medical History Condition Response Coronary Artery Disease N Other N High Blood Pressure N Atrial Fibrillation N Kidney or Bladder Problems N Thyroid Problems Y GI Problems N Depression N COPD N Blood Clots N Skin Problems N Anemia N Heart Attack ([place]) N Anxiety Disorder Y Diabetes N Muscle, Joint, or Bone Problems Y Seizures/Epilepsy N Acid Reflux (GERD) N Cancer N Stroke N Asthma N Allergies N High Cholesterol Y Hepatitis N Liver Disease N Headaches Y Heart Failure N Osteoporosis N Gynecological History Statement/Question Response Menses Monthly N If Post Menopausal, Age at Menopause 45 Current Control Method Ablation Obstetrics History GPAL:G 0 P 0 0 0 0 Immunizations Vaccine Type Date Status Note Provider Nam e and Address Organization Details Recorded Time Influenza, split virus, quadrivalent, preservative 0 completed ROHINI Ruiz, [place] [facility] 08/06/2024 14:16:56 Influenza, MDCK, quadrivalent, PF 9 completed ROHINI Ruiz, [place] [facility] 08/06/2024 14:16:56 COVID-19, mRNA, LNP-S, PF, 30 mcg/0.3 mL dose 1 completed Gilberto Shaikh MA null, [place] [facility] 08/06/2024 14:16:56 COVID-19, mRNA, LNP-S, PF, 30 mcg/0.3 mL dose 1 completed Gilberto Shaikh [place], [place] [facility] 08/06/2024 14:16:56 COVID-19, mRNA, LNP-S, PF, 30 mcg/0.3 mL dose 1 completed Gilberto Shaikh [place] [facility] 08/06/2024 14:16:56 COVID-19, mRNA, LNP-S, PF, 30 mcg/0.3 mL dose, godfrey-sucrose 2 completed Gilberto Shaikh [place] [facility] 08/06/2024 14:16:56 Influenza, split virus, trivalent, PF 4 completed KIEL Jacques Attn: Accounting,[address] [facility], [place], [address], [place] [facility] 08/28/2024 14:34:28 Past Encounters Encounter ID Performer Location Encounter Start Date Encounter Closed Date Diagnosis/Indication Diagnosis SNOMED-CT Code Diagnosis ICD10 Code Diagnosis Note [id number] Moo Purdy MD [facility] [place] [address] [place] [address] 02/09/2024 10:49:01 02/09/2024 11:40:57 Adult health examination 251379178 Z00.01 annual wellness completed. Hyperlipidemia 91221453 E78.5 CT calcium score dropped from 163 to 158, on rosuvastat in 5mg twice weekly. pt sees cardiology routinely with fam hx of CAD. fasting lipids are due. Fibromyalgia 775435307 M 79.7 refill on savelaa and tizanidine which are very helpful for managing her fibromyalg ia as best as it's been in long hx. Anxiety 07515425 F41.9 stable. following with psychiatry , Wally Garcia , [employer] HELPER. on medication . Irritable bowel syndrome characterized by constipation 871756594 K58.1 chronic issue. dietary managed. Family his tory of coronary arteriosclerosis 361645244 Z82.49 mother with CAD hx. Long-term drug therapy 530137424 Z79.899 routine cbc and cmp due Obesity 360578124 E66.9 pt is trying triple combinaton of wellbutrin , metformin and naltrexone , as suggested by her cardiologi st.discuss ed healthy diet, exercise, controllin g carbohydra samantha and added sugars in the diet Hypothyroidism 16893727 E03.9 refill on synthroid brand 100mcg daily. due for repeat TFT panel Benign ess ential hypertension 5218538 I10 stable. 140/90, refill HCTZ 25mg daily. plans for weight loss that will help her bp managment the most. Headache 97158639 R51.9 stable. refill on PRN use of ketorolac Screening mammography 24 307689 Z12.31 annual mammogram is due Cobalamin deficiency 190 724823 E53.8 B- vitamins requested to be checked. Diabetes m ellitus screening 303718469 Z13.1 a1c screening due. Vitamin D deficiency 347 45589 E55.9 annual vit d lab due. [id number] Moo Purdy MD [facility] [place] [address] [place] [address] 08/09/2024 10:57:05 08/09/2024 12:00:47 Fibromyalgia 287997730 M79.7 Stable on Savella and tizanidine which are very helpful for managing her fibromyalg ia as best as it's been in long hx. Hyperlipidemia 23994656 E78.5 CT calcium score dropped from 163 to 158, on rosuvastat in 5mg twice weekly. pt sees cardiology routinely with fam hx of CAD. Due for fasting lipid panel Hypothyroidism 31753570 E03.9 Stable on synthroid brand 100mcg daily. due for repeat TFT panel Benign ess ential hypertension 9252355 I10 stable on HCTZ 25mg daily. plans for weight loss that will help her bp management the most. Anxiety 52422652 F41.9 stable. following with psychiatry , Wally Garcia NP. on medication . Wellbutrin and clonazepam and Lexapro. Irritable bowel syndrome characterized by constipation 084454699 K58.1 chronic issue. dietary managed. Family his tory of coronary arteriosclerosis 831445350 Z82.49 mother with CAD hx. Headache 07410687 R51.9 stable. Takes p.r.n. use of ketorolac as directed Obesity 381306891 E66.9 discussed healthy diet, exercise, controllin g carbohydra samantha and added sugars in the diet Long-term drug therapy 574839187 Z79.899 routine cbc and cmp due Cobalamin deficiency 190 991527 E53.8 B- vitamins requested to be checked. Patient takes routine supplement ation for B vitamins Vitamin D deficiency 347 43622 E55.9 annual vit d lab due. On supplement Blood gluc ose outside reference range 789753591 R73.09 5.7% A1c on labs in January. Following routine A1c labs Body mass index 30+ - obesity 214312829 Z68.31 BMI is 31.1 Administra tion of influenza vaccine 29897518 Z23 Flu shot given today [id number] Moo Purdy MD [facility] [place] [address] [place] [address] 02/18/2025 14:24:36 02/23/2025 10:13:05 Fibromyalgia 586810412 M79.7 pt is interested in generic savella for cost savings if available now. she also has tizanidine for PRN use. Hyperlipidemia 87784454 E78.5 CT calcium score dropped from 163 to 158, on rosuvastat in 5mg twice weekly. pt sees cardiology routinely with fam hx of CAD. next fasting lipids due in june. Hypothyroidism 62876352 E03.9 Stable on synthroid brand 100mcg daily. Stable on current labs due for repeat labs in June Benign ess ential hypertension 9804618 I10 BMI is 148/80. Continue hydrochlor othiazide 25 mg daily Anxiety 99638212 F41.9 stable. following with psychiatry , Wally Garcia NP. on medication . Wellbutrin and clonazepam and Lexapro. Irritable bowel syndrome characterized by constipation 245736291 K58.1 chronic issue. dietary managed. Blood gluc ose outside reference range 372808694 R73.09 5.7% A1c on labs in January. Following routine A1c labs Headache 53009056 R51.9 stable. Takes p.r.n. use of ketorolac as directed Cobalamin deficiency 190 918262 E53.8 B- vitamins requested to be checked again on June labs. Vitamin D deficiency 347 74391 E55.9 Repeat vitamin-D lab again in June. Patient is on supplement Family his tory of coronary arteriosclerosis 227165647 Z82.49 mother with CAD hx. Long-term drug therapy 077086867 Z79.899 Routine CBC and CMP due in June as well Screening for malignant neoplasm of colon 678055058 Z12.11 Patient is due for colonoscop y screening Screening mammography 24 601180 Z12.31 annual mammogram is due Obese class I [id number] 73635 E66.811 BMI 31.5-discu ssed healthy diet, exercise, controllin g carbohydra samantha and added sugars in the diet Health Concerns Section Related Observation LastModified by Organization Detai ls LastModified Time None Recorded Concern Status LastModified by Organization Details LastModified Time None Recorded Advance Directives Directive Y: Payers Encounter Date Sequence Insurance Name Policy Number Policy Lau Covered Member ID Lau Member ID Guarantor Name 02/09/2024 1 [place] 112 Andrei Hathawaylon [id number] Terry Breihan 08/09/2024 1 [place] 112 Andrei Hath[employer]lon [id number] Terry Breihan 02/18/2025 1 [place] 112 Andrei Hathawayihkerry [id number] Terry Breihan Notes Date Note Type Note Provider Name and Address Organization Details Recorded Time 024 text/ht ml Anxiety/DepressionReported bypatient.Quality:symptoms improved Severity:denies suicidal ideations; able to maintain relationships; does not interfere with activities of daily living Duration:stablizing Context:no major life stressors Modifying Factors:medications as directed Associated Symptoms:denies homicidal ideations; no significant weight gain; no significant weight loss; no visual/auditory hallucinations; no delusions; no shortness of breath; mood good; no anxiety; no crying spells; no panic; no isolation; sleeping well; appetite good; energy good; no apathy; maintaining functionality FibromyalgiaReported bypatient.Frequencyconstant Durationyears Severity:day to day; moderate Pain in Joints or Muscles:pain of joints or muscles Alleviating factors:Savella Aggravating factors:emotional stress;exercise Associated Symptoms:fatigue;irritable bowel syndrome (IBS)HyperlipidemiaReported bypatient.Type of hyperlipidemia:combined Duration:chronic Control:improving Compliance:compliant; compliant with diet; exercises Complications:no coronary artery disease; no peripheral artery disease; no cardiovascular diseaseHypertensionReported bypatient.Severity:mild Duration:has noted for years Onset/Timing:better Context:emotional stress Alleviating Factors:medication Aggravating Factors:weight change Associated Symptoms:no shortness of breath; no fatigue; no palpitations; no decline in exercise capacity; no snoring KIEL Jacques Attn: Accounting, [address] [place], [address], [facility] - [facility] 02/09/2024 12:00:25 024 text/ht ml Anxiety/DepressionReported bypatient.Quality:symptoms improved Severity:denies suicidal ideations; able to maintain relationships; does not interfere with activities of daily living Duration:stablizing Context:no major life stressors Modifying Factors:medications as directed Associated Symptoms:denies homicidal ideations; no significant weight gain; no significant weight loss; no visual/auditory hallucinations; no delusions; no shortness of breath; mood good; no anxiety; no crying spells; no panic; no isolation; sleeping well; appetite good; energy good; no apathy; maintaining functionalityFibromyalgiaReported bypatient.Frequencyconstant Durationyears Severity:day to day; moderate Pain in Joints or Muscles:pain of joints or muscles Alleviating factors:Savella Aggravating factors:emotional stress;exercise Associated Symptoms:fatigue;irritable bowel syndrome (IBS)HyperlipidemiaReported bypatient.Type of hyperlipidemia:combined Duration:chronic Control:improving Compliance:compliant; compliant with diet; exercises Complications:no coronary artery disease; no peripheral artery disease; no cardiovascular diseaseHypertensionReported bypatient.Severity:mild Duration:has noted for years Onset/Timing:better Context:emotional stress Alleviating Factors:medication Aggravating Factors:weight change Associated Symptoms:no shortness of breath; no fatigue; no palpitations; no decline in exercise capacity; no snoring KIEL Jacques Attn: Accounting, [address] [place], [address], [facility] 08/28/2024 14:37:17 025 text/ht ml Anxiety/DepressionReported bypatient.Quality:symptoms improved Severity:denies suicidal ideations; able to maintain relationships; does not interfere with activities of daily living Duration:stablizing Context:no major life stressors Modifying Factors:medications as directed Associated Symptoms:denies homicidal ideations; no significant weight gain; no significant weight loss; no visual/auditory hallucinations; no delusions; no shortness of breath; mood good; no anxiety; no crying spells; no panic; no isolation; sleeping well; appetite good; energy good; no apathy; maintaining functionalityFibromyalgiaReported bypatient.Frequencyconstant Durationyears Severity:day to day; moderate Pain in Joints or Muscles:pain of joints or muscles Alleviating factors:Savella Aggravating factors:emotional stress;exercise Associated Symptoms:fatigue;irritable bowel syndrome (IBS)HyperlipidemiaReported bypatient.Type of hyperlipidemia:combined Duration:chronic Control:improving Compliance:compliant; compliant with diet; exercises Complications:no coronary artery disease; no peripheral artery disease; no cardiovascular diseaseHypertensionReported bypatient.Severity:mild Duration:has noted for years Onset/Timing:better Context:emotional stress Alleviating Factors:medication Aggravating Factors:weight change Associated Symptoms:no shortness of breath; no fatigue; no palpitations; no decline in exercise capacity; no snoring KIEL Jacques Attn: Accounting, [address] [place], [address], [facility] 03/06/2025 18:47:27 OBGyn Episode No OBEpisode recorded.
--- OUTSIDE RECORDS SUMMARY | 2025-04-06 08:41 | XMS_ITS | Clinical Summary ---
Author Organization [facility] Health Address [address] [place] [address] Care Team Providers Care Fire Department Battalion Chief Name Role Phone Unavailable Primary Care Provider Unavailabl e Source Comments [facility],non-owned Affiliates and Associated Physician Practices is amultiple site organization consisting of ambulatory clinics and hospital sitesin [place], [place], [place] and [place]. This disclosure is being madepursuant to the Care Everywhere program and may not contain all information available regarding this patient. 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 04/26/2015 Other specified postprocedural states 04/26/2015 Calculus of kidney 04/26/2015 Overview (01/26/2018): Nathaniel 2010 - Personal history of other diseases of the digest apolinar system 04/26/2015 Tubal ligation status 04/26/2015 Amenorrhea 04/25/2015 Other fatigue 04/25/2015 Chronic tension-type headache, not intractable 0 04/25/2015 Myalgia 04/25/2015 Generalized hyperhidrosis 04/25/2015 Pain in joint 04/25/2015 Iron deficiency anemia 09/03/2012 Fibromyalgia 09/03/2012 Vitamin D deficiency 09/03/2012 Family History Medical History Relation Name Comments Early Maternal Grandfather heart a ttack Diabetes Mother Early Paternal Grandfather Thyroid Disease Neg Hx Relation Name Status Comments Maternal Grandfather Mother Paternal Grandfather Social History Tobacco Use Types Packs/Day Years Used Date Smoking Tobacco: Never Smokeless Tobacco: Never Alcohol Use Standard Drinks/Week Comments Not Asked 0 (1 standard drink = 0.6 oz pur e alcohol) Comments Unknown Sex and Gender Information Value Date Recorded Sex Assigned at Not on file 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 Gender Identity Not on file Sexual Orientation Not on file Last Filed Vital Signs Vital Sign Reading Time Taken Comments Blood Pressure 114/80 04/25/2015 10:24 AM CDT Pulse 88 04/25/2015 10:24 AM CDT Temperature 36.6 C (97.8 F) 04/25/2015 10:24 AM CDT Respiratory Rate 20 04/25/2015 10:24 AM CDT Oxygen Saturation - - Inhaled Oxygen Concentration - - Weight 79.8 kg (176 lb) 04/25/2015 10:24 AM CDT Height 161.9 cm (5' 3.75) 04/25/2015 10:24 AM C DT Body Mass Index 30.45 04/25/2015 10:24 AM CDT Plan of Treatment Health Maintenance Due Date Last Done Comments COLOGUARD (AGES 45-75) - COL ON CA SCREENING 1977 COLON MONITORING 1977 COLONOSCOPY - COLON CA SCREENING 1977 CT COLONOGRAPHY - COLON CA SCREENING 1977 Colorectal Cancer Screening 1977 FIT - COLON CA SCREENING 1977 FLEX SIG - COLON CA SCREENING 1977 LIPID TESTING 1977 MAMMOGRAM 1977 HIV SCREENING 1992 DTAP/TDAP/TD VACCINES (1 - Tdap) 1996 HEPATITIS B VACCINE (1 of 3 - 19+ 3-dose series) 1996 COVID-19 VACCINE ( - 2023-2 5 season) 2024 DEPRESSION SCREENING 10/27/2024 INFLUENZA VACCINE (Season Ended) 2025 ZOSTER VACCINE (1 of 2) 2027 HEPATITIS C SCREENING Completed 02/24/2012 HIB VACCINE Aged Out No longer eligi ble based on patient's age to complete this topic HPV VACCINE Aged Out No longer eligi ble based on patient's age to complete this topic MENINGOCOCCAL (Group B) VACC INE SHARED DECISION-MAKING Aged Out No longer eligibl e based on patient's age to complete this topic MENINGOCOCCAL GROUPS A/C/Y/W VACCINE Aged Out No longer eligible b ased on patient's age to complete this topic PNEUMOCOCCAL VACCINE Aged Out No long er eligible based on patient's age to complete this topic Procedures Procedure Name Priority Date/Time Associated Diagnosis Comments HEPATITIS C ANTIBODY Routine 02/24/2012 1:00 PM CDT from Last 3 Months or Most Recently Relevant to Health Maintenance Results * HEPATITIS C ANTIBODY (02/24/2012 1:00 PM CDT) Hepatitis C Antibody NEGATIVE NEGATIVE [facility] Comment: Anti-HCV screen indicates no serologic evidence of past or current infection with Hepatitis C Virus. Patients with unexplained liver disease who are immunocompromised or suspected of having acute Hepatitis C infection may benefit from Nucleic Acid Test (EITAN) for Hepatitis C Viral RNA to confirm Hepatitis C status. 02/24/2012 1:00 PM CDT 02/24/2012 1:56 PM CDT Debra Cardenas MD LAB - CHEMISTRY RAFAEL HA Final Result [address] [phone] from Last 3 Months or Most Recently Relevant to Health Maintenance Insurance
--- OUTSIDE RECORDS SUMMARY | 2025-04-06 08:41 | XMS_ITS | Encounter Summary ---
Author Organization [facility] Address [address] [place] [address] Care Team Providers Care Manager Cleaning Name Role Phone Unavailable Primary Care Provider Unavailabl e Encounter Details Date Type Department Care Team (Late st Contact Info) Description 09/22/2019 Lab Requisition [facility] DermPath Lab [address] [place] [id number] [place] [address] Social History Tobacco Use Types Packs/Day Years Used Date Smoking Tobacco: Never Smokeless Tobacco: Never Alcohol Use Standard Drinks/Week Comments Not Asked 0 (1 standard drink = 0.6 oz pur e alcohol) Comments Unknown Sex and Gender Information Value Date Recorded Sex Assigned at Not on file 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 Gender Identity Not on file Sexual Orientation Not on file documented as of this encounter Plan of Treatment Not on file documented as of this encounter Procedures Procedure Name Priority Date/Time Associated Diagnosis Comments DERMATOPATHOLOGY Routine 09/21/2019 12:0 0 AM MANAGEMENT LEAD documented in this encounter Results * DERMATOPATHOLOGY (09/21/2019 12:00 AM MANAGEMENT LEAD) Case Report Dermatopathology Report Case: [id number] Authorizing Provider: Jean Parish MD Collected: 09/21/2019 12:00 AM Ordering Location: [facility] Derm[facility] Lab Received: 09/22/2019 01:53 PM Pathologist: Jenny Castrejon MD Specimen: Skin, right cheek lateral to melolabial fold 9 8:44 PM [facility] DERMATOPATHOLOGY LABORATORY Final Diagnosis Specimen A. SKIN, right cheek lateral to melolabial fold: ROSACEA, CONSISTENT WITH (L71.9) (see microscopic description) 9 8:44 PM [facility] DERMATOPATHOLOGY LABORATORY at [address] [facility] Clinical History R/O cyst, nevus, other 9 8:44 PM [facility] DERMATOPATHOLOGY LABORATORY Gross Description Specimen A: Received is one formalin filled container labeled with the patient's name and designated right cheek lateral to melolabial fold. The specimen consists of a punch biopsy measuring 3x3x3 mm. Jar 0. 9 8:44 PM [facility] DERMATOPATHOLOGY LABORATORY Microscopic Description Specimen A. SKIN, right cheek lateral to melolabial fold: The epidermis is largely unremarkable. A mild perivascular and perifollicular inflammatory infiltrate composed predominantly of lymphocytes is noted in the upper and mid dermis. Dilated thin-walled superficial dermal blood vessels are observed. Solar elastosis is present. A cystic lesion is not seen. A melanocytic proliferation is not appreciated. Multiple rounds of additional deeper sections were obtained and reviewed. COMMENT: The findings raise consideration for rosacea. 9 8:44 PM [facility] DERMATOPATHOLOGY LABORATORY Disclaimer An external and internal positive and negative controls are appropriate for the histochemical, immunohistochemical and immunofluorescence stain(s) in this case (if any), except where stated explicitly. The performance characteristics of the stain(s) cited in this report were developed and its performance characteristic determined by the Dermatopathology Laboratory at [facility], directed by Dr. Phil Matthew. These tests need not be, and therefore are not, approved by the [place] Food and Drug Administration. The tests are used for clinical purposes. Billing Codes Specimen Charges Stain Charges 69546 1 9 8:44 PM [facility] DERMATOPATHOLOGY LABORATORY Embedded Images 9 8:44 PM [facility] DERMATOPATHOLOGY LABORATORY Pathology/Cytolog y TISSUE SPECIMEN FROM SKIN / Unknown 09/21/2019 09/22/2019 1:53 PM MANAGEMENT LEAD us Jean Parish MD LAB - PATHOLOGY/CYTOLOGY ORD ERABLES Final Result DERMATOPATHOLOGY LABORATORY [facility] - Department of Dermatology [address], [address] [place] [address], [facility] [phone] documented in this encounter Visit Diagnoses Not on filedocumented in this encounter
--- OUTSIDE RECORDS SUMMARY | 2025-04-06 08:41 | XMS_ITS ---
Author Organization [facility] Address [address] [place] [address] Care Team Providers Care Show Host/Hostess Name Role Phone Michelle Lopez Primary Care Provider Rufino Ortiz Unavailable [phone] REASON FOR VISIT f/u, Follow up appointment, seen via tele Medications Medication SIG (Take, Route, Frequency, Duration) Notes Start Date End Date Status Ergocalciferol 1.25 MG (54638 UT) Oral 12/29/2023 Active Fluconazole 150 MG TAKE 1 TABLET BY MOUTH EVERY 4 DAYS Oral for 8 Days Not-Taking Wegovy 0.5 MG/0.5ML Subcutaneous for 28 Days Not-Taking Wegovy 0.5 MG/0.5ML INJECT 0.5 MG UNDER THE SKIN EVERY WEEK Subcutaneous for 28 Days Not-Taking clonazePAM 0.5 MG 1 tablet Oral four times a day for 30 days As needed 04/04/2025 Active Sertraline HCl 100 MG 1.5 tablet Orally Once a day for 30 days Active Amoxicillin 875 MG Oral for 7 Days Not-Taking Wegovy 1 MG/0.5ML Subcutaneous for 28 Days Not-Taking Amoxicillin 875 MG TAKE 1 TABLET BY MOUTH TWICE DAILY Oral for 5 Days Not-Taking Savella 50 MG TAKE 2 TABLET BY MOUTH EVERY MORNING AND THEN 1 TABLET EVERY EVENING Oral for 30 Days Not-Taking Doxycycline Hyclate 100 MG TAKE 1/2 TABLET BY MOUTH EVERY DAY Oral for 30 Days Not-Taking clonazePAM 0.5 MG Oral for 30 Days Not-Taking guaiFENesin-Codeine 100-10 MG/5ML TAKE 10 ML BY MOUTH EVERY 6 HOURS NEEDED Oral for 3 Days Not-Taking Escitalopram Oxalate 20 MG 0.5 tablet Oral Once a day for 7 days Active Ondansetron HCl 8 MG 1 tablet Orally twice a day for 14 days As needed 03/17/2025 Active Synthroid 100 MCG Oral for 30 Days Active Spironolactone 25 MG Oral for 30 Days Active Sertraline HCl 25 MG Take 1 tablet by mouth once a day for 7 days, then take 2 tablets once a day for 7 days. for 14 days replacing lexapro Active Savella 50 MG TAKE 2 TABLET BY MOUTH EVERY MORNING AND THEN 1 TABLET EVERY EVENING Oral for 30 Days Active Saxenda 18 MG/3ML Subcutaneous for 44 Days Active Ketorolac Tromethamine 10 MG Oral for 7 Days Active Rosuvastatin Calcium 5 MG Oral for 90 Days Active Fluconazole 150 MG Oral for 2 Days Active tiZANidine HCl 4 MG Oral 12/29/2023 Active HYDROcodone-Acetamino phen 5-325 MG Oral 12/29/2023 Active Miebo 1.338 GM/ML INSTILL ONE DROP INTO BOTH EYES FOUR TIMES DAILY . BOTTLE PREPARATION IS REQUIRED. REFER TO PACKAGE INSERT FOR SPECIAL PREPARATION AND ADMIN Ophthalmic for 30 Days Active Social History Sex Assigned At : Social History Observation Description Sex Assigned At Female Encounters Encounter Location Date Provider Diagnosis [facility] [email or web address] [address] [address] 04/04/2025 Rufino Qiuoza Generalized anxiety disorder F41.1 ; Negative depression screening Z13.31 ; Encounter for screening for cardiovascular disorders Z13.6 ; Dietary counseling and surveillance Z71.3 and Fibromyalgia M79.7 Assessments Encounter Date Diagnosis (ICD Code) Assessment Notes Treatment Notes Treatment Clinical Notes Section Notes 04/04/2025 Generalized anxiety disorder (ICD-10 - F41.1) 04/04/2025 Negative depression screening (ICD-10 - Z13.31) 04/04/2025 Encounter for screening for cardiovascular disorders (ICD-10 - Z13.6) 04/04/2025 Dietary counseling and surveillance (ICD-10 - Z71.3) 04/04/2025 Fibromyalgia (ICD-10 - M79.7) managed by pcp Plan Of Treatment Medication Medication Name Sig Start Date Stop Date Notes clonazePAM 0.5 MG 1 tablet Oral four t imes a day for 30 days 04/04/2025 Sertraline HCl 100 MG 1.5 tablet Orally Once a day for 30 days Escitalopram Oxalate 20 MG 0.5 tablet Or al Once a day for 7 days Treatment Notes Assessment Notes Fibromyalgia managed by pcp Next Appt Details Follow Up: 4 Weeks, Reason: f/u anxiety Progress Notes * ANMOL SUE LDOB:[birth year] (50 yo F)Acc No.[id number]:04/04/2025 Patient: ANMOL HUFFMAN Provider: TARYN EDWARDS :1975 A ge:50 Y S ex:Female Date:04/04/2025 Address:[address] [place], [place] [id number] Pcp:Michelle DYSON Check In:02:01 PM CSTCheck O ut:02:17 PM [employer] Subjective: * Chief Complaints: * 1 . F/u. 2. Follow up appointment. 3. Seen via tele. * HPI: D epression Screening: LORENA-7 (2018 Edition) F eeling nervous, anxious, or on edge S ever N ot being able to stop or control worrying?Several days W orrying too much about different things S ever T rouble relaxing S ever B eing so restless that it is hard to sit still N ot at all B ecoming easily annoyed or irritable N ot at all F eeling afraid as if something awful might happen N ot at all T otal LORENA-7 Score 4 I nterpretation of Total ( 0 to 4) No Anxiety D epression screening: PHQ-9 L ittle interest or pleasure in doing things?Not at all F eeling down, depressed, or hopeless N ot at all T rouble falling or staying asleep, or sleeping too much S ever F eeling tired or having little energy N ot at all P oor appetite or overeating N ot at all F eeling bad about yourself or that you are a failure, or have let yourself or your family down S ever T rouble concentrating on things, such as reading the newspaper or watching television S everal days M oving or speaking so slowly that other people could have noticed; or the opposite, being so fidgety or restless that you have been moving around a lot more than usual S ever T houghts that you would be better off or of hurting yourself in some way N ot at all H istory of Presenting Problem: The patient was seen today for Tele visit. [place] seen at [place] ___x__Pt is seen at other than Home [facility]. Anxiety s table, Aggravated by: stress. Mind races some days. . Depression w ill retire 02/22/29. Sleep disturbance s leeps good. * Medical History: P carlos: Fibromyalgia, Generalized anxiety disorder, ,, Imported from [facility]: The patient has had multiple encounters with healthcare providers from May 2021 to May 2023. The most significant visit was on June 16, 2023, with KIEL Jacques. During this periodic preventive care visit, the patient was evaluated for several conditions. These include adult health examination, anxiety, benign essential hypertension, cobalamin deficiency, diabetes mellitus screening, hyperlipidemia, hypothyroidism, irritable bowel syndrome characterized by constipation, long- term drug therapy, migraine, primary fibromyalgia syndrome, and vitamin D deficiency. The patient's medical history suggests a complex health profile requiring ongoing management and monitoring., Imported from [facility]: On 02/18/2025 the patient [...] were conducted, and vitamin D deficiency was identified.. * Medications: T aking clonazePAM 0.5 MG Tablet 1 tablet Oral four times a day As needed, Taking Ergocalciferol 1.25 MG (61656 UT) Capsule Oral , Taking tiZANidine HCl 4 MG Tablet Oral , Taking HYDROcodone-Acetaminophen 5-325 MG Tablet Oral , Taking Miebo 1.338 GM/ML Solution INSTILL ONE DROP INTO BOTH EYES FOUR TIMES DAILY . BOTTLE PREPARATION IS REQUIRED. REFER TO PACKAGE INSERT FOR SPECIAL PREPARATION AND ADMIN Ophthalmic , Taking Savella 50 MG Tablet TAKE 2 TABLET BY MOUTH EVERY MORNING AND THEN 1 TABLET EVERY EVENING Oral , Taking Saxenda 18 MG/3ML Solution Pen-injector Subcutaneous , Taking Ketorolac Tromethamine 10 MG Tablet Oral , Taking Rosuvastatin Calcium 5 MG Tablet Oral , Taking Fluconazole 150 MG Tablet Oral , Taking Synthroid 100 MCG Tablet Oral , Taking Spironolactone 25 MG Tablet Oral , Taking Sertraline HCl 100 MG Tablet 1 tablet Orally Once a day , Taking Sertraline HCl 25 MG Tablet Take 1 tablet by mouth once a day for 7 days, then take 2 tablets once a day for 7 days. , Notes to Pharmacist: replacing lexapro, Taking Ondansetron HCl 8 MG Tablet 1 tablet Orally twice a day As needed, Not-Taking Savella 50 MG Tablet TAKE 2 TABLET BY MOUTH EVERY MORNING AND THEN 1 TABLET EVERY EVENING Oral , Not-Taking Doxycycline Hyclate 100 MG Tablet TAKE 1/2 TABLET BY MOUTH EVERY DAY Oral , Not-Taking clonazePAM 0.5 MG Tablet Oral , Not-Taking guaiFENesin-Codeine 100-10 MG/5ML Solution TAKE 10 ML BY MOUTH EVERY 6 HOURS NEEDED Oral , Not-Taking Amoxicillin 875 MG Tablet Oral , Not- Taking Wegovy 1 MG/0.5ML Solution Auto-injector Subcutaneous , Not-Taking Amoxicillin 875 MG Tablet TAKE 1 TABLET BY MOUTH TWICE DAILY Oral , Not-Taking Fluconazole 150 MG Tablet TAKE 1 TABLET BY MOUTH EVERY 4 DAYS Oral , Not-Taking Wegovy 0.5 MG/0.5ML Solution Auto-injector Subcutaneous , Not-Taking Wegovy 0.5 MG/0.5ML Solution Auto- injector INJECT 0.5 MG UNDER THE SKIN EVERY WEEK Subcutaneous , Discontinued Escitalopram Oxalate 20 MG Tablet 0.5 tablet Oral Once a day , Discontinued Escitalopram Oxalate 20 MG Tablet Take 1 tablet by mouth daily. , Medication List reviewed and reconciled with the patient Objective: * Vitals: * Examination: P sychiatry: Appearance: w ell-groomed, well-nourished, appears stated age. Affect / mood: a ppropriate. Orientation: a wake, alert and oriented x 3. ? Assessment: * Assessment: 1. N egative depression screening - Z13.31 (Primary) 2 . G eneralized anxiety disorder - F41.1 3 . E ncounter for screening for cardiovascular disorders - Z13.6 4 . D ietary counseling and surveillance - Z71.3 5 . F ibromyalgia - M79.7 Plan: * Treatment: 2. F ibromyalgia Notes: managed by pcp * Follow Up: 4 Weeks (Reason: f/u anxiety) * Billing Information: * Visit Code: 80837 OFFICE OUTPATIENT VISIT 25 MINUTES DETAILED HISTORY AND EXAM/MODERATE MEDICAL DECISION MAKING. Modifiers: 95 * Procedure Codes: * Electronic signature of TARYN Starks on 04/06/2025 at 08:40 AM CDT Sign off status: Pending * Provider: TARYN EDWARDS Date: 0 04/04/2025 Generated for Frank iyer/Jenni/Nicholesmstefan on: 04/06/2025 08:40 AM CDT History and Physical Notes * HPI (History of Present Illness) Category Sub-Category Detail Notes Category Not es History of Presenting Problem Anxiety stable, Aggravated by: stres s. Mind races some days. Depression will retire 02/22/29 Sleep disturbance sleeps good Depression screening PHQ-9 Little inte rest or pleasure in doing things: Not at all Feeling down, depressed, or hopeless: No t at all Trouble falling or staying asleep, or sl eeping too much: Several days Feeling tired or having little energy: N ot at all Poor appetite or overeating: Not at all Feeling bad about yourself o r that you are a failure, or have let yourself or your family down: Several days Trouble concentrating on thi ngs, such as reading the newspaper or watching television: Several days Moving or speaking so slowly that other people could have noticed; or the opposite, being so fidgety or restless that you have been moving around a lot more than usual: Several days Thoughts that you would be b sj off or of hurting yourself in some way: Not at all Depression Screening LORENA-7 (2018 Edition) Feelin g nervous, anxious, or on edge: Several days Not being able to stop or control worryi ng: Several days Worrying too much about different things : Several days Trouble relaxing: Several days Being so restless that it is hard to sit still: Not at all Becoming easily annoyed or irritable: No t at all Feeling afraid as if something awful elva ht happen: Not at all Total LORENA-7 Score: 4 Interpretation of Total: (0 to 4) No Anx iety Examination Category Sub-Category Detail Notes Category Not es Psychiatry Appearance: well-groomed, we ll-nourished, appears stated age Orientation: awake, alert and ronald ented x 3 Affect / mood: appropriate
== END 2025-04-06 08:23 | disposition home or self-care (01) ==
LOC: CHSIMG 08:25
PROVIDERS: PCP Physician Assistant; Visit Provider Physician Assistant
DX: Z12.31 Encounter for screening mammogram for malignant neoplasm of breast (principal)
CPT/HCPCS: 77063; 77067